=== PATIENT | female | born 1940 | race Caucasian/White ===

== ENCOUNTER 2024-11-03 13:18 | Outpatient (AMB) | payer MEDICARE, OTHER, SELFPAY ==
--- OUTSIDE RECORDS SUMMARY | 2024-11-03 13:20 | XMS_ITS | Data Portability ---
Author Organization [place] - [facility], Allergy Address [address] [place] [phone] Assessment No assessment recorded. Plan of Treatment Reminders Order Date Submit Date Provider Last Modified By Organization Details Last Modified Time Details Appointments None recorded. Lab None recorded. Referral gastroenter ologist referral - Appt 10/25 @ 4pm. Barium swallow in [facility], done in 2022. 2023 024 2 [facility], [address], [place], [address], 14:48:49 Procedures None recorded. Surgeries None recorded. Imaging None recorded. Medication Orders None recorded. Patient TargetsNo targets recorded. Patient InstructionsNo instructions recorded. Reason for Referral [facility] Referral for Pharyngeal dysphagia Appt 10/25 @ 4pm. Barium swallow in [facility], done in 2022. Referring Physician: Kamini Scherer, Otolaryngology, Encounter Date: 07/22/2024 Results Created Date Observation Date Name Description Value Unit Range Abnormal Flag Note LastModifiedBy Organization Detail LastModifiedTime 07/08/20 24 04/15/2023 imagi ng/di agnos tic resul t No observ ation record ed. [email or web address] Not Available 12:32:15 07/08/20 24 04/15/2023 imagi ng/di agnos tic resul t No observ ation record ed. [email or web address] Not Available 12:32:16 07/08/20 24 04/15/2023 imagi ng/di agnos tic resul t No observ ation record ed. [email or web address] Not Available 12:32:17 07/08/20 24 04/15/2023 imagi ng/di agnos tic resul t No observ ation record ed. [email or web address] Not Available 12:32:20 07/08/20 24 10/17/2022 imagi ng/di agnos tic resul t No observ ation record ed. [email or web address] Not Available 12:32:23 Result Notes None recorded. Problems Name Problem SNOMED Code Status Onset Date Resolution Date Notes Provider Name and Address Organization Details Recorded Time Pharyngea l dysphagia 91838560878 105 Active 2022 Dysphagia , pharyngea l phase; Note: Date Diagnosed : 12/23/2022 8:53 AM (R13.13) Not Available [facility] 02:57:44 Chronic pharyngit is 827103 Active 2022 Chronic sore throat; Note: Date Diagnosed : 12/23/2022 8:53 AM (J31.2) Not Available [facility] 02:57:41 Problem Notes None recorded. Procedures Surgical History Date Name Laterality Status Provider Name and Address Organization Details Recorded Time 07/22/20 Fiberoptic Laryngoscopy (Comprehensive) completed KAMINI SCHERER MD [address] [place] [address], [phone] [place] - [facility] 08/01/2024 10:49:17 Imaging Results Imaging Date Name Status [facility]Modified by [facility] Details LastModified Time 04/15/2023 imaging/diag nostic result completed Information not available 07/08/2024 12:32:15 04/15/2023 imaging/diag nostic result completed Information not available 07/08/2024 12:32:16 04/15/2023 imaging/diag nostic result completed Information not available 07/08/2024 12:32:17 04/15/2023 imaging/diag nostic result completed Information not available 07/08/2024 12:32:20 10/17/2022 imaging/diag nostic result completed Information not available 07/08/2024 12:32:23 Procedure Notes None recorded. Medical Equipment None Reported. Allergies No known drug allergies Medications Name Sig Start Date Stop Date Status Note LastModified by Organization Details LastModified Time atorvasta tin 80 mg tablet TAKE 1 TABLET BY MOUTH EVERY DAY active Not Available Not Available No t Available venlafaxi ne ER 75 mg capsule,e xtended release 24 hr TAKE 1 CAPSULE BY MOUTH EVERY DAY 07/22 completed Not Available Not Available Not Available fosfomyci n trometham ine 3 gram oral packet TAKE 1 SACHET DISSOLVE D IN LIQUID BY MOUTH ONCE 07/22 completed Not Available Not Available Not Available fluconazo le 150 mg tablet TAKE 1 TABLET BY MOUTH ONCE,REP EAT DOSE IF STILL HAVING SYMPTOMS IN 72 HOURS 07/22 completed Not Available Not Available Not Available metoprolo l succinate ER 50 mg tablet,ex tended release 24 hr TAKE 1 TABLET BY MOUTH EVERY DAY active Not Available Not Available No t Available hydrochlo rothiazid e 50 mg tablet TAKE 1 TABLET BY MOUTH EVERY DAY 07/22 completed Not Available Not Available Not Available senna 8.6 mg tablet TAKE 1 TABLET BY MOUTH DAILY AT BEDTIME FOR 10 DAYS 07/22 completed Not Available Not Available Not Available nifedipin e ER 30 mg tablet,ex tended release TAKE 1 TABLET BY MOUTH EVERY DAY 07/22 completed Not Available Not Available Not Available amlodipin e 5 mg tablet TAKE 1 TABLET BY MOUTH EVERY DAY active Not Available Not Available No t Available tramadol 50 mg tablet TAKE 1 TABLET BY MOUTH EVERY 12 HOURS NEEDED FOR PAIN active Not Available Not Available No t Available meloxicam 7.5 mg tablet TAKE 1 TABLET BY MOUTH EVERY DAY 07/22 completed Not Available Not Available Not Available levothyro xine 100 mcg tablet TAKE 1 TABLET DAILY SAME DOSE AND HALF TABLET ON THE WEEKEND FRIDAY active Not Available Not Available No t Available amlodipin e 10 mg tablet TAKE 1 TABLET BY MOUTH EVERY DAY 07/22 completed Not Available Not Available Not Available cephalexi n 500 mg capsule TAKE 1 CAPSULE BY MOUTH EVERY 12 HOURS FOR 7 DAYS 07/22 completed Not Available Not Available Not Available pantopraz ole 40 mg tablet,de layed release TAKE 1 TABLET BY MOUTH TWICE A DAY active Not Available Not Available No t Available hyoscyami ne sulfate 0.125 mg tablet TAKE 1 TABLET BY MOUTH 4 TIMES A DAY NEEDED FOR SPASM 07/22 completed Not Available Not Available Not Available lidocaine 5 % topical patch PLACE 1 PATCH TOPICALL Y DAILY, REMOVE PATCHES AFTER 12 HOURS*NO T COVERED active Not Available Not Available No t Available Aspirin Childrens 81 mg chewable tablet active Medicati on ID: [id number] rand Name: Aspirin Children s Send Method: E-Prescr ibed Sub s Allowed: subs OK Medic ationGen ericName : Aspirin Children s Not Available Not Available Not Available hydrochlo rothiazid e 25 mg tablet 07/22 completed Medicati on ID: [id number] B rand Name: hydrochl orothiaz nikki Send Method: E-Prescr ibed Sub s Allowed: subs OK Medic ationGen ericName : hydrochl orothiaz nikki Not Available Not Available Not Available zolpidem 5 mg tablet TAKE 1 TABLET BY MOUTH EVERYDAY AT BEDTIME *NOT COVERED/ USE DISC CARD) active Not Available Not Available No t Available gabapenti n 100 mg capsule TAKE 1 CAPSULE BY MOUTH TWICE A DAY FOR 5 DAYS active Not Available Not Available No t Available metoprolo l succinate ER 25 mg tablet,ex tended release 24 hr 07/22 completed Medicati on ID: [id number] rand Name: metoprol ol succinat e Send Method: E-Prescr ibed Sub s Allowed: subs OK Medic ationGen ericName : metoprol ol succinat e Not Available Not Available Not Available estradiol 0.01% (0.1 mg/gram) vaginal cream APPLY 1 GRAM VAGINALL Y DAILY AT BEDTIME FOR 14 DAYS active Not Available Not Available No t Available doxycycli ne hyclate 100 mg tablet TAKE 1 TABLET BY MOUTH TWICE A DAY WITH FOOD FOR 7 DAYS 07/22 completed Not Available Not Available Not Available irbesarta n 300 mg tablet TAKE 1 TABLET BY MOUTH EVERY DAY active Not Available Not Available No t Available oxycodone 5 mg tablet TAKE 1 TABLET BY MOUTH 3 TIMES A DAY FOR 30 DAYS NEEDED FOR PAIN 07/22 completed Not Available Not Available Not Available escitalop alfonso 20 mg tablet 07/22 completed Medicati on ID: [id number] B rand Name: escitalo pram oxalate Send Method: E-Prescr ibed Sub s Allowed: subs OK Medic ationGen ericName : escitalo pram oxalate Not Available Not Available Not Available Klor-Con M20 mEq tablet,ex tended release TAKE 1 TABLET BY MOUTH EVERY DAY active Not Available Not Available No t Available Klor-Con M10 mEq tablet,ex tended release TAKE 1 TABLET BY MOUTH EVERY DAY 07/22 completed Not Available Not Available Not Available pregabali n 75 mg capsule TAKE 1 CAPSULE BY MOUTH TWICE A DAY 07/22 completed Not Available Not Available Not Available hydrochlo rothiazid e 12.5 mg tablet TAKE 1 TABLET BY MOUTH EVERY DAY 07/22 completed Not Available Not Available Not Available Readi-Cat 2 2 % (w/v) oral suspensio n USE PRIOR TO CT active Not Available Not Available No t Available Vitals Date Recorded Body height Body mass index (BMI) Body weight Provider Name and Address Organization Details Last Updated DateTime 07/22/2024 154.94 cm 23.2 kg/m2 01448.86 g Mikki Wolff [place] [facility] 07/22/2024 11:41:43 Social History None recorded. Functional Status None recorded. Mental Status None recorded. Family History Nothing Reported. Medical History Condition Response Hypertension Y GERD/Reflux Y Gynecological HistoryNo gynecological history recorded. Obstetrics History GPAL:G 0 P 0 0 0 0 Past Encounters Encounter ID Performer Location Encounter Start Date Encounter Closed Date Diagnosis/Indication Diagnosis SNOMED-CT Code Diagnosis ICD10 Code [id number] KAMINI SCHERER MD [facility] on [address] [place] [phone] 07/22/2024 10:54:20 07/22/2024 16:38:55 Pharyngeal dysphagia 4593087972 9105 R13.13 Health Concerns Section Related Observation LastModified by Organization Detai ls LastModified Time None Recorded Concern Status LastModified by Organization Details LastModified Time None Recorded Advance Directives Directive None Recorded Payers Encounter Date Sequence Insurance Name Policy Number Policy Gonzalez Covered Member ID Gonzalez Member ID Guarantor Name 07/22/2024 1 MEDICARE B-[place]: [facility] [employer] Danisha Camiol [id number] Danisha Camilo 07/22/2024 2 [facility] [id number] Danisha Camilo [id number] Danisha Camilo Notes Date Note Type Note Provider Name and Address Organization Details Recorded Time 07/22/2024 text/html Patient presents today for reassessment of her throat. For several months she feels like a door closes in her throat and then clears. She is also noted that chewing is very uncomfortable at the level of her gingiva. Her dentist did recommend a mouthguard as she does clench but she does not have this. She does have a history of trigeminal neuralgia. Since Her previous modified barium swallow showed no aspiration, but she did have some intermittent spasm of the cricopharyngeus. She had a CT scan in October showing a asymmetric calcific hypo density in the posterior aspect of the vocal cord. KAMINI SCHERER MD [address] [place] [address], [phone], [facility] - [facility] 08/01/2024 10:51:20 OBGyn Episode No OBEpisode recorded.
--- NOTE | 2024-11-03 14:07 | A.SPINEOV_ITS ---
Vital Signs 11/03/24 14:17 Height 5 ft 1 in Weight 126 lb BMI 23.8 Intake Visit Reasons: LBP/ R sided pain Intake Note: Ms. Camilo is here today c/o low back pain. Md Ophthalmologist Required: No Allergies gabapentin Allergy (Mild, Verified 11/03/24 14:18) Swelling Physical Exam Vital Signs: BMI result Body Mass Index 23.8 Assessment & Plan Assessment & Plan (1) Scoliosis of lumbar region due to degenerative disease of spine in adult: Code(s): M41.56 - Other secondary scoliosis, lumbar region Category: Medical Plan: Dear colleague On 11/03/2024 I saw for 2nd opinion Danisha Camilo with a chief complaint of right groin pain. HPI: This 84-year-old female has a longstanding history of pain radiating from her back into her groin. The groin pain is worse than the back pain. Sometimes the pain goes down the front of her thigh. Oxycodone alleviates his symptoms but she is no longer able to get those medications. She takes tramadol twice a day. The pain is so bad that it makes her cry. She has had multiple injections the pain he spinal support. She had an surgical consult at [facility]. The working diagnosis was sacroiliitis and she was prescribed an SI joint belt, which was too cumbersome to wear. PMH: Hypertension, cholecystectomy, PE, heart attack, cardiac stent Medications: Aspirin amlodipine, atorvastatin, hydrochlorothiazide, metoprolol, pantoprazole, tramadol Allergies: Gabapentin Social history: Physical Exam: On inspection there was a lumbar degenerative scoliosis with the apex towards the right side. SI joint provocative test produces pain of her right hip area. Straight leg raise is negative. Motor and sensory exam are intact. No pathological reflexes. The initial start of walking is painful. Radiological Studies: MRI done at [facility] shows multilevel degenerative spinal stenosis with nerve root compression of L2, L3, L4 and L5 on the right side. A standing x-ray obtained today with dynamic views shows a lumbar degenerative scoliosis with the apex at L1-2 and L2-3. No instability. Impression/Plan: This patient is most likely suffering from a radicular pain. Differential diagnosis is right sacroiliitis. I am going to request the the medical records from [facility] to see what type of injections were done. I will follow-up with the patient after review of the records. My initial thought is to request an L2 or L3 nerve block. Thank you for allowing me to participate in your patients care. total time spent was 50 minutes in counseling ,coordination of plan, personal review of imaging, surgical decision making and subsequent plan Jay Velasco MD, PhD Spine Fellowship Trained Neurosurgeon Director, [facility] (2) Lumbar radiculopathy, chronic: Code(s): M54.16 - Radiculopathy, lumbar region Category: Medical Plan: f Orders: Orders XR lumbar spine 4V min Today M41.56 - Other secondary scoliosis, lumbar region Coding Level of Care Code New Pt Level 4 (43946) Diagnoses Scoliosis of lumbar region due to degenerative disease of spine in adult M41.56 Lumbar radiculopathy, chronic M54.16
[2024-11-03 14:17] VITALS: BMI 23.8
== END 2024-11-03 15:37 | disposition home or self-care (01) ==
PROVIDERS: PCP Internal Medicine; Visit Provider Neurological Surgery
DX: M41.56 Other secondary scoliosis, lumbar region (principal); M54.16 Radiculopathy, lumbar region
CPT/HCPCS: 99204

== ENCOUNTER 2024-11-03 13:18 | Outpatient (REF) | payer MEDICARE, OTHER, SELFPAY ==
--- NOTE | ~2024-11-03 | XR_ITS ---
EXAMINATION: XR LUMBAR SPINE CLINICAL INFORMATION: Other secondary scoliosis, lumbar region M41.56. COMPARISON: None TECHNIQUE: AP/lateral/flexion/extension views of the lumbar spine. 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 FINDINGS: There is diffuse osteopenia. No acute fracture, compression deformity, or suspicious focal bone lesion. There is a moderate right convex lumbar scoliosis, apex at L3. There is an exaggerated lumbar lordosis. Multilevel moderate to severe disc degeneration present, with disc vacuum phenomenon spanning L2-L5. Multilevel degenerative facet changes bilaterally, most significant spanning L3-S1. Neutral lateral view demonstrates 2 mm degenerative retrolisthesis L3 on L4, and 3 mm degenerative anterolisthesis of L4 on L5. There is no change on flexion and extension views to suggest instability. Soft tissues demonstrate extensive vascular calcifications and cholecystectomy clips. XR/XR lumbar spine 4V min IMPRESSION: 1. Osteopenia with moderate right convex scoliosis and exaggerated lordosis. 2. Extensive lumbar spondylosis as discussed. 3. There is no evidence of instability on flexion-extension views. Electronically signed by: Kendall Adkins MD 12/09/2024 03:27 PM EST
--- OUTSIDE RECORDS SUMMARY | 2024-11-03 15:37 | XMS_ITS | Continuity of Care Document ---
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 Schroeder in 2016. She last saw him in March 2020 and was having painful hardware. They discussed hardware removal surgery at that time she elected to hold off on surgery. 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 She described chronic low back pain. Her back is currently much more an issue than her right foot. She is here today to discuss future hardware removal. Past family, medical, social history and review of systems has been reviewed, updated and is located in the patient? s chart. PHYSICAL EXAM: General: healthy appearing, in no acute distress Psych: alert and oriented x3, normal mood Skin: intact without ulceration or lesion, normal turgor Lungs: respirations unlabored Cardiac: heart rate regular, normal peripheral pulses Musculoskeletal: On standing exam, she has normal alignment in her hallux was well aligned. She has a well-healed dorsal incision. There is no swelling and no infectious change. Her hardware is prominent and tender over the dorsal aspect of the hallux. She has decreased sensation over the dorsal aspect of her foot related to peripheral neuropathy. There is no TMT tenderness or instability. There is no lesser MTP tenderness or deformity. She is otherwise distally neurovascularly intact. She has palpable pedal pulses. X-RAYS: Three standing views of the right foot were ordered, obtained and reviewed by me today at [facility], demonstrating healed right first MTP fusion with intact dorsal plate screw construct and medial lag screw. IMPRESSION: Right great toe painful retained hardware PLAN: I believe she is symptomatic from the standpoint of her retained hardware, which is prominent. I have offered surgery consisting of right hallux removal of hardware. She will think about this and call the office when she is ready to proceed. A hold booking form was filled out today. 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 All questions were answered. She understands and agrees with this plan. She will be able to weight-bear in a postop shoe following surgery. Risks include, but are not limited to, wound healing problems, deep infection, persistent pain, stiffness, nerve injury/neuritis, need for further surgery. The expected postoperative course was outlined in detail. The patient understands the nature and magnitude of this surgery. All questions were answered. [email or web address] Not available 09/16/2024 09:37:26 Plan of Treatment Reminders Order Date Submit Date Provider Last Modified By Organization Details Last Modified Time Details Appointments None recorded. Lab None recorded. Referral None recorded. Procedures None recorded. Surgeries orthopaedic surgery (SURG) 2023 024 [email or web address] Not available 4 10:47:13 Imaging XR, foot, 3 or more view - RM 107-- NEW 3V FOOT WB 2023 024 [facility], [address], [facility] [address], [place], [address], 4 19:41:42 Medication Orders None recorded. Patient TargetsNo targets recorded. Patient InstructionsNo instructions recorded. Reason for Referral None Reported. Results Created Date Observation Date Name Description Value Unit Range Abnormal Flag Note LastModifiedBy Organization Detail LastModifiedTime 09/16/20 24 09/16/2024 XR, foot, 3 or more view [email or web address]:/ [email or web address] ?Encry pted=s [place] YD8dLq bEUv6g %2BXZw aYqtaq 0bqfl% 2Fg9IQ a4ajBk vP9nXo QUaueC m3YtLR FvZlgJ JJ8mAn HZtai3 [id number] AC0Kqa H6CWKO gKiQtr MwF INTERFACE [facility] [address], [place], [address], 09/16/2024 09:07:26 09/16/20 24 09/16/2024 XR, foot, 3 or more view [email or web address]:/ [email or web address] ?Encry pted=s hAaTro YD8dLq bEUv6g %2BXZw aYqtaq 0bqfl% 2Fg9IQ a4ajBk vP9nXo QUaueC m3YtLR FvZlgJ JJ8mAn HZtai3 [id number] AC0Kqa H6CWKO gKiQtr Mw INTERFACE [facility] [address], [place], [address], 09/16/2024 09:07:28 Result Notes None recorded. Problems Name Problem SNOMED Code Status Onset Date Resolution Date Notes Provider Name and Address Organization Details Recorded Time No complaints 692041931 Active Status : 'A'; Not Available [facility] 4 09:20:03 Problem Notes None recorded. Medical Equipment None Reported. Allergies Allergen ID Allergen Name Allergen Category Reaction Reaction Severity Criticality Documentation Date Start Date Code Code System Note Provider Name and Address Organization Details Recorded Time 06719 Substance with sulfonami de structure and antibacte rial mechanism of action (substanc e) medicatio n Not available Not available Not available 01/19/20242010 46759 8003 SNOMED Aller gyRea ction : 'STOM [facility] PROBL EMS'; Not Available [facility] 4 14:47:39 Medications Name Sig Start Date Stop Date Status Note LastModified by Organization Details LastModified Time atorvastatin 80 mg tablet TAKE 1 TABLET BY MOUTH EVERY DAY active Not Available Not Available No t Available venlafaxine ER 75 mg capsule,exte nded release 24 hr TAKE 1 CAPSULE BY MOUTH EVERY DAY active Not Available Not Available No t Available fosfomycin tromethamine 3 gram oral packet TAKE 1 SACHET DISSOLVED IN LIQUID BY MOUTH ONCE active Not Available Not Available No t Available fluconazole 150 mg tablet TAKE 1 TABLET BY MOUTH ONCE,REPEAT DOSE IF STILL HAVING SYMPTOMS IN 72 HOURS active Not Available Not Available No t Available metoprolol succinate ER 50 mg tablet,exten ded release 24 hr TAKE 1 TABLET BY MOUTH EVERY DAY active Not Available Not Available No t Available hydrochlorot hiazide 50 mg tablet TAKE 1 TABLET BY MOUTH EVERY DAY active Not Available Not Available No t Available hydrocodone 5 mg-acetamino phen 325 mg tablet TAKE 1 TABLET BY MOUTH ONCE DAILY NEEDED FOR SEVERE PAIN active Not Available Not Available Not Available senna 8.6 mg tablet TAKE 1 TABLET BY MOUTH DAILY AT BEDTIME FOR 10 DAYS active Not Available Not Available Not Available nifedipine ER 30 mg tablet,exten ded release TAKE 1 TABLET BY MOUTH EVERY DAY active Not Available Not Available No t Available amlodipine 5 mg tablet TAKE 1 TABLET BY MOUTH EVERY DAY active Not Available Not Available No t Available tramadol 50 mg tablet TAKE 1 TABLET BY MOUTH EVERY 12 HOURS, NEEDED FOR PAIN active Not Available Not Available No t Available meloxicam 7.5 mg tablet TAKE 1 TABLET BY MOUTH EVERY DAY active Not Available Not Available No t Available levothyroxin e 100 mcg tablet TAKE 1 TABLET DAILY SAME DOSE AND HALF TABLET ON THE WEEKEND FRIDAY active Not Available Not Available No t Available amlodipine 10 mg tablet TAKE 1 TABLET BY MOUTH EVERY DAY active Not Available Not Available No t Available cephalexin 500 mg capsule TAKE 1 CAPSULE BY MOUTH EVERY 12 HOURS FOR 7 DAYS active Not Available Not Available N ot Available pantoprazole 40 mg tablet,delay ed release TAKE 1 TABLET BY MOUTH TWICE A DAY active Not Available Not Available No t Available hyoscyamine sulfate 0.125 mg tablet TAKE 1 TABLET BY MOUTH 4 TIMES A DAY NEEDED FOR SPASM active Not Available Not Available No t Available pseudoephedr ine-guaifene sin ER 80-700 mg tablet,exten ded release 1-2 Q4-6 HRS PRN PAIN. DO NOT DRIVE ON THIS MEDICATION MUST LAST 3 DAYS 2015 active Statu s: 'Curr ent'; Not Available Not Available Not Available lidocaine 5 % topical patch PLACE 1 PATCH TOPICALLY DAILY, REMOVE PATCHES AFTER 12 HOURS*NOT COVERED active Not Available Not Available No t Available hydrochlorot hiazide 25 mg tablet TAKE 1 TABLET BY MOUTH EVERY DAY active Not Available Not Available No t Available zolpidem 5 mg tablet TAKE 1 TABLET BY MOUTH EVERYDAY AT BEDTIME active Not Available Not Available No t Available gabapentin 100 mg capsule TAKE 1 CAPSULE BY MOUTH TWICE A DAY FOR 5 DAYS active Not Available Not Available No t Available estradiol 0.01% (0.1 mg/gram) vaginal cream APPLY 1 GRAM VAGINALLY DAILY AT BEDTIME FOR 14 DAYS active Not Available Not Available No t Available doxycycline hyclate 100 mg tablet TAKE 1 TABLET BY MOUTH TWICE A DAY WITH FOOD FOR 7 DAYS active Not Available Not Available No t Available irbesartan 300 mg tablet TAKE 1 TABLET BY MOUTH EVERY DAY active Not Available Not Available No t Available oxycodone 5 mg tablet TAKE 1 TABLET BY MOUTH 3 TIMES A DAY FOR 30 DAYS NEEDED FOR PAIN active Not Available Not Available No t Available Klor-Con M20 mEq tablet,exten ded release TAKE 1 TABLET BY MOUTH EVERY DAY active Not Available Not Available No t Available Klor-Con M10 mEq tablet,exten ded release TAKE 1 TABLET BY MOUTH EVERY DAY active Not Available Not Available No t Available pregabalin 75 mg capsule TAKE 1 CAPSULE BY MOUTH TWICE A DAY active Not Available Not Available No t Available Levoxyl Levoxyl 112MCG Tablet as directed 2007 active Statu s: 'Curr ent'; Not Available Not Available Not Available potassium Potassium 75MG Tablet 2022 active Statu s: 'Curr ent'; Not Available Not Available Not Available hydrochlorot hiazide 12.5 mg tablet TAKE 1 TABLET BY MOUTH EVERY DAY active Not Available Not Available No t Available Readi-Cat 2 2 % (w/v) oral suspension USE PRIOR TO CT active Not Available Not Available No t Available Vitals Date Recorded Body height Body mass index (BMI) Body weight Provider Name and Address Organization Details Last Updated DateTime 09/16/2024 154.94 cm 23.4 kg/m2 61297.45 g KERRI Marina [place] - [facility] 09/16/2024 09:09:48 Social History None recorded. Functional Status None recorded. Mental Status None recorded. Family History Nothing Reported. Medical History No medical history recorded. Gynecological HistoryNo gynecological history recorded. Obstetrics History GPAL:G 0 P 0 0 0 0 Past Encounters Encounter ID Performer Location Encounter Start Date Encounter Closed Date Diagnosis/Indication Diagnosis SNOMED-CT Code Diagnosis ICD10 Code [id number] MD [facility]y [facility] [address] [place] [address] 09/16/2024 08:24:02 10/07/2024 19:41:42 Pain in right foot 7183092728 38085 M79.671 Pain 37705837 T84.84X A Health Concerns Section Related Observation LastModified by Organization Detai ls LastModified Time None Recorded Concern Status LastModified by Organization Details LastModified Time None Recorded Payers Encounter Date Sequence Insurance Name Policy Number Policy Gonzalez Covered Member ID Gonzalez Member ID Guarantor Name 09/16/2024 2 [facility] INDEMN[facility] PLAN (PPO) [id number] Danisha Camilo [id number] Danisha Camilo 09/16/2024 1 MEDICARE B-[place]: [facility] [employer] Danisha Camilo [id number] 1 Danisha Camilo OBGyn Episode No OBEpisode recorded.
== END 2024-11-03 13:19 | disposition home or self-care (01) ==
LOC: HO.HOSX 13:18
PROVIDERS: PCP Internal Medicine; Visit Provider Neurological Surgery
DX: M54.16 Radiculopathy, lumbar region (principal); M41.56 Other secondary scoliosis, lumbar region
CPT/HCPCS: 72110; 99202

== ENCOUNTER 2025-01-05 11:11 | Outpatient (AMB) | payer MEDICARE, OTHER, SELFPAY ==
--- NOTE | 2025-01-05 11:27 | HO.SPINEOV ---
Intake Visit Reasons: f/up to review Intake Note: Ms. Camilo is here today for a F/u. [employer] Specialist Required: No Allergies gabapentin Allergy (Mild, Verified 01/05/25 11:31) Swelling Assessment & Plan Assessment & Plan (1) Lumbar radiculopathy, chronic: Code(s): M54.16 - Radiculopathy, lumbar region Category: Medical Plan Dear colleague, On 01/05/2025 I saw for follow-up Danisha Camilo. She suffering from a right-sided pain that starts in the back and then radiates to her right groin sometimes down her thigh. She had multiple injections done at [facility] in the lumbar spine and SI joints bilaterally. Clinically, it sounds like a radiculopathy and not an SI joint instability. She never had a right L2 diagnostic block for which I am going to refer to pain you [facility]. The patient returned to my clinic when this block is done to discuss the results. I spent 20 minutes in his consult for history review of imaging and discussing plan of care. Jay Velasco MD, PhD Spine Fellowship Trained Neurosurgeon Director, [facility] Orders: Referrals Pain Management Referral M54.16 - Radiculopathy, lumbar region Coding Level of Care Code Est Pt Level 3 (75540) Diagnoses Lumbar radiculopathy, chronic M54.16
--- OUTSIDE RECORDS SUMMARY | 2025-01-05 11:56 | XMS_ITS | Data Portability ---
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 Schroeder in 2015. She last saw him in March 2020 [...] obtained and reviewed by me today at [facility], demonstrating healed right first MTP fusion with [...] recorded. Surgeries orthopaedic surgery (SURG) 2023 024 Not available 4 10:47:13 Imaging XR, foot, 3 or more view - 107-- NEW 3V FOOT WB 2023 024 [facility], [address], [facility] [address], [place], [address], 4 19:41:42 Medication Orders None recorded. Patient [...] a4ajBk vP9nXo QUaueC m3YtLR FvZlgJ JJ8mAn HZtai3 [id number] AC0Kqa H6CWKO gKiQtr MwF INTERFACE [facility] [address], [place], [address], 09/16/2024 09:07:26 09/16/2009/16/2024 XR, foot, 3 or more view http:/ [email or web address] ?Encry pted=s hAaTro YD8dLq bEUv6g %2BXZw aYqtaq 0bqfl% 2Fg9IQ a4ajBk vP9nXo QUaueC m3YtLR FvZlgJ JJ8mAn HZtai3 [id number] AC0Kqa H6CWKO gKiQtr Mw INTERFACE [facility] [address] [employer] [address], [address], 09/16/2024 09:07:28 Result Notes None recorded. Problems Name Problem SNOMED Code Status Onset Date Resolution Date Notes Provider Name and Address Organization Details Recorded Time No complaints [id number] Active Status : 'A'; Not Available [facility] 09:20:03 Problem Notes None recorded. Procedures Surgical History None recorded. Imaging Results Imaging Date Name Status LastModified by Organiz ation Details LastModified Time 09/16/2024 XR, foot, 3 or more view completed INTERFACE [employer] [facility] [address] [place] [address], [place], [address], 09/16/2024 09:07:26 09/16/2024 XR, foot, 3 or more view completed INTERFACE [facility] [address], [place], [address], 09/16/2024 09:07:28 Procedure Notes None recorded. Medical Equipment None Reported. Allergies Allergen ID Allergen Name Allergen Category Reaction Reaction Severity Criticality Documentation Date Start Date Code Code System Note Provider Name and Address Organization Details Recorded Time 42617 Substance with sulfonami de structure and antibacte rial mechanism of action (substanc e) medicatio n Not available Not available Not available 01/19/20242010 25848 8003 SNOMED Aller gyRea ction : 'STOM [facility] PROBL EMS'; Not Available [facility] 4 14:47:39 Medications Name Sig Start [...] Updated DateTime 09/16/2024 154.94 cm 23.4 kg/m2 09660.45 g KERRI Marina [place] - [facility] 09/16/2024 09:09:48 Social History None recorded. Functional Status None recorded. Mental Status None recorded. Family History Nothing Reported. Medical History No medical history recorded. Gynecological HistoryNo gynecological history recorded. Obstetrics History GPAL:G 0 P 0 0 0 0 Past Encounters Encounter ID Performer Location Encounter Start Date Encounter Closed Date Diagnosis/Indication Diagnosis SNOMED-CT Code Diagnosis ICD10 Code Diagnosis Note [id number] MD Bry [facility] [address] [place] [address] 09/16/2024 08:24:02 10/07/2024 19:41:42 Pain in right foot [id number] 56632 M79.671 Pain 39294878 T84.84X A Health Concerns Section Related Observation LastModified by Organization Detai ls LastModified Time None Recorded Concern Status LastModified by Organization Details LastModified Time None Recorded Advance Directives Directive None Recorded Payers Encounter Date Sequence Insurance Name Policy Number Policy Gonzalez Covered Member ID Gonzalez Member ID Guarantor Name 09/16/2024 2 [facility] INDEMNITY PLAN (PPO) [id number] Danisha Camilo [id number] Danisha Camilo 09/16/2024 1 [place] [employer] Danisha Camilo [id number] 1 Danisha Camilo OBGyn Episode No OBEpisode recorded.
--- OUTSIDE RECORDS SUMMARY | 2025-01-05 11:56 | XMS_ITS | Continuity of Care Document ---
Author Organization [facility] ter Address [address] [place] [id number]- Support Name Relationship Address Phone WENDI ADLER Personal Relationship Unknown Unava ilable CADRAN, YULI Personal Relationship Unknown Unavai lable CADRAN, YULI Personal Relationship Unknown Unavai lable CADRAN, JAVI child Unknown Unavailable CADRAN, YULI Personal Relationship Unknown Unavai lable CADRAN, MICHELE Personal Relationship Unknown Unava ilable CADRAN, YULI Personal Relationship Unknown Unavai lable CADRAN, DALEH Personal Relationship Unknown Unava ilable CADRAN, MICHELE R Personal Relationship Unknown Samantha vailable CARDRAN, YULI spouse Unknown Unavailable CARDRAN, JAVI child Unknown Unavailable CADRAN, YULI Personal Relationship Unknown Unavai lable CADRAN, YULI Personal Relationship Unknown Unavai lable CADRAN, MICHELE R Personal Relationship Unknown Samantha vailable CADRAN, YULI Personal Relationship Unknown Unavai lable CADRAN, YULI Personal Relationship Unknown Unavai lable CADRAN, YULI Personal Relationship Unknown Unavai lable CADRAN, YULI spouse Unknown Unavailable CADRAN, YULI Personal Relationship Unknown Unavai lable CADRAN, MICHELE R Personal Relationship Unknown Samantha vailable CADRAN, YULI Personal Relationship Unknown Unavai lable CADRAN, YULI Personal Relationship Unknown Unavai lable Care Team Providers Care Field Control Inspector Name Role Phone Felton RUIZ, Dulce Maria Primary Care Physici an Encounter [facility] Date(s): 12/07/24 - 12/07/[address] [address]- Discharge Disposition: A-D/C Home Attending Physician: Isabella Sanchez MD Admitting Physician: Isabella Sanchez MD Referring Physician: Isabella Sanchez MD Encounter Type: Disch Daystay Allergies, Adverse Reactions, Alerts Substance Criticality Severity Reaction Reaction Severity Status nitroglycerin 1 Unable to assess criticality Persistent Moderate Weakness present Active gabapentin Active sulfa drugs Active 1weakness Immunizations Given and Recorded Vaccine Date Status Refusal Reason influenza virus vaccine, inactivated 08/06/24 Micheal rded influenza virus vaccine, inactivated 08/06/23 Micheal rded influenza virus vaccine, inactivated 08/19/22 Micheal rded influenza virus vaccine, inactivated 08/29/21 Micheal rded influenza virus vaccine, inactivated 08/17/19 Micheal rded influenza virus vaccine, inactivated 07/30/18 Micheal rded influenza virus vaccine, inactivated 08/10/10 Micheal rded SARS-CoV-2(COVID-19)mRNA-LNP vac([id number]) 08/06/24 Recorded SARS-CoV-2(COVID-19)mRNA-LNP vac([id number]) 08/16/23 Recorded zoster vaccine, inactivated 07/06/24 Recorded zoster vaccine, inactivated 09/16/22 Recorded zoster vaccine, inactivated 09/27/16 Recorded [id number] 12y+ bivalent booster vax 08/19/22 Recorded SARS-CoV-2 (COVID-19) mRNA BNT-162b2 vac 09/14/21 Recorded SARS-CoV-2 (COVID-19) mRNA BNT-162b2 vac 01/25/21 Recorded SARS-CoV-2 (COVID-19) mRNA BNT-162b2 vac 12/28/20 Recorded Influenza Virus Vaccine (oldterm) 08/10/17 Recorde d Influenza Virus Vaccine (oldterm) 09/06/16 Recorde d Zoster Vaccine Live 03/07/16 Recorded pneumococcal 13-valent vaccine 04/24/15 Recorded pneumococcal 23-valent vaccine 08/17/11 Recorded Medications amLODIPine 5 mg oral tablet 1 tablet, By Mouth, Daily, # 90 tablet, 1 Refills, Maintenance, 08/03/24 2:40:00 PM EDT, [id number], 155, cm, 07/13/24 14:51:00 EDT, Height, 55, kg, 05/12/24 3:01:00 EDT, Dry Weight Start Date: 08/03/24 Status: Ordered Quantity: 90.0 Unit: tablet Repeat number: 1 aspirin 81 mg oral delayed release tablet 81 mg, 1, tablet, By Mouth, Daily, # 30 tablet, Refills 0, Maintenance, 01/11/20 10:29:00 AM EST Start Date: 01/11/20 Status: Ordered Quantity: 30.0 Unit: tablet Repeat number: 1 atorvastatin 80 mg oral tablet 1 tablet, By Mouth, Daily, # 90 tablet, 1 Refills, Maintenance, 08/03/24 2:40:00 PM EDT, [id number], 155, cm, 07/13/24 14:51:00 EDT, Height, 55, kg, 05/12/24 3:01:00 EDT, Dry Weight Start Date: 08/03/24 Status: Ordered Quantity: 90.0 Unit: tablet Repeat number: 1 calcium-vitamin D 600 mg-400 intl units oral tablet 1 tablet, By Mouth, 2 times a day, # 180 tablet, 1 Refills, Maintenance, 11/18/24 10:13:00 AM EST, [facility], 90, TAKE 1 TABLET BY MOUTH TWICE A DAY, 156, cm, 11/08/24 6:34:00 EST, Height, 57, kg, 11/08/24 6:34:00 EST, Dry Weight Start Date: 11/18/24 Status: Ordered Quantity: 180.0 Unit: tablet Repeat number: 1 Centrum By Mouth, Daily, 0 Refills, Maintenance, 01/11/20 10:30:00 AM EST Start Date: 01/11/20 Status: Ordered Repeat number: 1 estradiol 0.1 mg/g vaginal cream See Instructions, APPLY 1 GRAM VAGINALLY DAILY AT BEDTIME FOR 14 DAYS, # 42.5 Gm, 0 Refills, Maintenance, 08/03/24 11:29:00 AM EDT, [id number], 155, cm, 07/13/24 14:51:00 EDT, Height, 55, kg, 05/12/24 3:01:00 EDT, Dry Weight Start Date: 08/03/24 Status: Ordered Quantity: 42.5 Unit: g Repeat number: 1 fosfomycin 3 g oral granule for reconstitution 1 each = 3 Gm, By Mouth, Once, # 1 pack/packet, 0 Refills, Soft Stop, 07/01/24 1:58:00 PM EDT, Granule, [facility]/pharmacy #[id number], Partial fill upon patient request if the prescription is for a schedule II opioid drug., 155, cm, 05/29/24 10:33:00 EDT, Height, 55, kg, 05/12/24 3:01:00 EDT, Dry Weight Start Date: 07/01/24 Status: Ordered Quantity: 1.0 Unit: pack/packet Repeat number: 1 irbesartan 300 mg oral tablet 1 tablet, By Mouth, Daily, # 90 tablet, 1 Refills, Maintenance, 10/07/24 10:07:00 AM EST, [facility]/pharmacy #[id number], 155, cm, 10/07/24 9:57:00 EST, Height, 55, kg, 09/14/24 5:53:00 EDT, Dry Weight Start Date: 10/07/24 Status: Ordered Quantity: 90.0 Unit: tablet Repeat number: 2 Indication: Essential (primary) hypertension Klor-Con M20 20 mEq oral tablet, extended release 1 tablet, By Mouth, Daily, # 90 tablet, 2 Refills, Maintenance, 11/18/24 10:13:00 AM EST, [facility], 156, cm, 11/08/24 6:34:00 EST, Height, 57, kg, 11/08/24 6:34:00 EST, Dry Weight Start Date: 11/18/24 Status: Ordered Quantity: 90.0 Unit: tablet Repeat number: 1 levothyroxine 0.1 mg oral tablet See Instructions, TAKE 1 TABLET DAILY SAME DOSE AND HALF TABLET ON THE WEEKEND FRIDAY, # 90 tablet,1 Refills, Maintenance, 07/21/24 10:58:00 AM EDT, [facility], 155, cm, 07/13/24 14:51:00 EDT, Height, 55, kg, 05/12/24 3:01:00 EDT, Dry Weight Start Date: 07/21/24 Status: Ordered Quantity: 90.0 Unit: tablet Repeat number: 1 lidocaine 5% topical film 1 patch, Topically, Daily, remove patches after 12 hours, # 30 patch, 1 Refills, Maintenance, 10/12/24 11:35:00 AM EST, Film, [id number], Partial fill upon patient request if the prescriptionis for a schedule II opioid drug., 1 patch Topically Daily,Instr:remove patches after 12 hours, 155, cm, 10/07/24 10:15:00 EST, Height, 55, kg, 09/14/24 5:53:00 EDT, Dry Weight Start Date: 10/12/24 Status: Ordered Quantity: 30.0 Unit: patch Repeat number: 2 meloxicam 7.5 mg oral tablet 1 tablet, By Mouth, Daily, # 30 tablet, 0 Refills, Maintenance, 07/06/24 7:34:00 PM EDT, [id number], 155, cm, 05/29/24 10:33:00 EDT, Height, 55, kg, 05/12/24 3:01:00 EDT, Dry Weight Start Date: 07/06/24 Status: Ordered Quantity: 30.0 Unit: tablet Repeat number: 1 Metoprolol Succinate ER 50 mg oral tablet, extended release 1, tablet, By Mouth, Daily, # 90 tablet, Refills 1, Tot. Refills 1, Maintenance, 10/07/24 10:06:00 AM EST, Route to Pharmacy Electronically, [facility]/pharmacy #[id number], 155, cm, 10/07/24 9:57:00 EST, Height,55, kg, 09/14/24 5:53:00 EDT, Dry Weight Start Date: 10/07/24 Status: Ordered Quantity: 90.0 Unit: tablet Repeat number: 2 Indication: Essential (primary) hypertension pantoprazole 40 mg oral delayed release tablet 1 tablet, By Mouth, 2 times a day, # 180 tablet, 1 Refills, Maintenance, 10/07/24 10:07:00 AM EST, 155, cm, 10/07/24 9:57:00 EST, Height, 55, kg, 09/14/24 5:53:00 EDT, Dry Weight Start Date: 10/07/24 Status: Ordered Quantity: 180.0 Unit: tablet Repeat number: 2 traMADol 50 mg oral tablet 1 tablet, By Mouth, Every 12 hours, PRN NEEDED FOR PAIN, # 40 tablet, 2 Refills, Maintenance, 11/18/24 10:08:00 AM EST, [facility]/pharmacy #[id number], 156, cm, 11/08/24 6:34:00 EST, Height, 57, kg, 11/08/24 6:34:00 EST, Dry Weight Start Date: 11/18/24 Status: Ordered Quantity: 40.0 Unit: tablet Repeat number: 3 venlafaxine 150 mg oral capsule, extended release 1 capsule, By Mouth, Daily, # 90 capsule, 0 Refills, Maintenance, 12/07/24 11:45:00 PM EST, [facility] [id number], 154.9, cm, 12/07/24 11:33:00 EST, Height, 54.4, kg, 12/07/24 11:33:00 EST, Dry Weight Start Date: 12/07/24 Status: Ordered Quantity: 90.0 Unit: capsule Repeat number: 1 zolpidem 5 mg oral tablet 1 tablet = 5 mg, By Mouth, Daily at bedtime, # 30 tablet, 0 Refills, Maintenance, 12/07/24 2:54:00 PM EST, [facility]/pharmacy #[id number], 154.9, cm, 12/07/24 11:33:00 EST, Height, 54.4, kg, 12/07/24 11:33:00 EST, Dry Weight Start Date: 12/07/24 Status: Ordered Quantity: 30.0 Unit: tablet Repeat number: 1 Problem List Condition Confirmation Course Effective Dates Status H ealth Status Informant Anxiety disorder Confirmed Active Atrophic vaginitis Confirmed Active Atrophic pancreas Confirmed Active Left breast mass Confirmed Active Carotid atherosclerosis Confirmed Active Cervical radiculopathy Confirmed Active Chest pain Confirmed Active Chronic abdominal pain Confirmed Active Chronic back pain Confirmed Active Chronic vulvitis Confirmed Active Ureteric dilatation, right Confirmed Active Dysphagia Confirmed Active Lower extremity edema Confirmed Active Essential hypertension Confirmed Active Gastroesophageal reflux disease Confirmed Active History of TIA (transient ischemic attack) Confirmed Active Hyperglycemia Confirmed Active Hyperhidrosis Confirmed Active Hyperlipidemia Confirmed Active Hypokalemia Confirmed Active Hypothyroidism Confirmed Active Insomnia Confirmed Active Skin tag of vulva Confirmed Active Muscle pain Confirmed Active Neuropathic pain, arm Confirmed Active Lung nodule Confirmed Active Osteopenia Confirmed Active Major depression, recurrent Confirmed Active Major depression, recurrent, chronic Confirmed Active Sacral insufficiency fracture Confirmed Active Trigeminal neuralgia Confirmed Active 3-vessel CAD Confirmed Active Urinary tract infection Confirmed Active Vital Signs Most recent to oldest [Reference Range]: 1 2 3 Height 154.9 cm (12/07/24 11:16 AM) Oxygen Saturation [94-100 %] 97 % (12/07/24 1:00 PM) 98 % (12/07/24 12:55 PM) 99 % (12/07/24 12:45 PM) Pulse Rate [55-90 bpm] 65 bpm (12/07/24 11:16 AM) Blood Pressure [90-138/55-84 mm Hg] 161/81mm Hg *H* (12/07/24 1:00 PM) 169/79mm Hg *H* (12/07/24 12:55 PM) 161/71mm Hg *H* (12/07/24 12:45 PM) Respiratory Rate [16-30 br/min] 20 br/min (12/07/24 1:00 PM) 14 br/min *L* (12/07/24 12:55 PM) 21 br/min (12/07/24 12:45 PM) Temperature [96.8-100.4 DegF] 97.2 DegF (12/07/24 11:16 AM) Mode of Delivery (Oxygen) Room air (12/07/24 1:00 PM) Room air (12/07/24 12:55 PM) Room air (12/07/24 12:45 PM) Blood pressure sites Arm, left (12/07/24 1:00 PM) Arm, left (12/07/24 12:55 PM) Arm, left (12/07/24 12:45 PM) Temperature Route Temporal (12/07/24 11:16 AM) Dry Weight 54.4 kg (12/07/24 11:16 AM) Dry Weight Obtained Via Patient/family s tated (12/07/24 11:16 AM) Social History Social History Type Response Smoking Status Never (less than 100 in lifetime); Use: pt denies entered on: 06/19/23 Sex Female Sex Representation Female (finding) Clinical Note * Event Display: GG EGD Please click on pdf link to open report Note * Vel Olivarez RN: PERFORM Event Display: Discharge/Transfer Note Hospital Authored Date: [id number] Nursing Discharge Note Entered On: 12/07/2024 13:19 EST Performed On: 12/07/2024 13:17 EST by Vel Olivarez RN Nursing Discharge Note 2 Discharge Time : 12/07/2024 13:34 EST Vel Olivarez RN - 12/07/2024 13:34 EST Discharge Level of Care at Discharge : Home/Custodial/Foster Care Patient Left Unit Via : Wheelchair Patient Accompanied Off Unit with : Responsible adult DC Instructions Provided & Signed by Pt : Yes Patient Understands D/C Instructions : Yes Patient Instructions Discharge Signed : Yes Did Pt have Specialty Bed or Wound Vac : No Vel Olivarez RN - 12/07/2024 13:17 EST * Vel Olivarez RN: PERFORM Event Display: Patient Education/Instruction Authored Date: [id number] Inpatient Adult Discharge Instructions. [address] [address] Name: MICHELE ADLER : 1940?? Visit: 12/07/2024 10:13?? Current Date: 12/07/2024 13:20 ?? Account: [id number]?? Inpatient Adult Discharge Instructions We would like to thank you for allowing us to assist you with your healthcare needs. The following includes patient education materials and information regarding your injury/illness. Our entire staffstrives to provide an excellent experience for our patients and their families. PLEASE ENSURE YOU FOLLOW-UP PER THE INSTRUCTIONS BELOW! ?? YOUR OPINION IS IMPORTANT TO US! Please complete the survey you may receive by mail or email. Your feedback will be used to make improvements to the healthcare experiences of our patients and their families. Surveys are administered by [employer] ?? If further treatment with your primary care physician or another doctor is recommended, it is important for you to keep the appointment. Call your primary care physician or return to the Emergency Department immediately if your condition worsens, fails to improve, or new symptoms develop. If you need to find a doctor, you can call [facility] Link for a referral at [phone] or toll free at [phone] or log in to [email or web address].. ?? [facility], in keeping with [facility] guidance, no longer requires face masks for staff, patientsor visitors in most situations. Similiar to time spent indoors at other locations, there is the chance that you were exposed to repiratory viruses during your time with us (such as flu or COVID-19). If you develop symptoms concerning for a viral respiratory infection, please seek testing (and treatment if indicated) from your medical provider or home test kit. ?? You can view and manage your care through the patient portal or by using a health care colin of your choosing. [employer] is a website that allows you to securely view your medical information including your hospital discharge summary, office visit summaries, medications and follow-up visits. You can also request appointments, renew medications, and request access to your medical information using a health care colin of your choosing, or just ask a question. You can enroll at [email or web address] or register during your next office visit. You have been discharged from [facility], Patient Care Unit: ENDO??. If you have any questions regarding these instructions, including results of studies pending, afteryou leave, please call us and we will be happy to assist you 09/06. [facility] Nursing Unit Direct Phone Number, for 09/06 contact and results of studies pending ENDO [address], [place] [id number] Your Care Team Attending Physician Isabella Sanchez MD?? Consulting Providers Isabella Sanchez MD?? Discharging Providers Isabella Sanchez MD Tests Performed Below is a partial list of the tests performed during your hospitalization. You may have had other tests and procedures not included in this list. Please discuss all test results with your provider. No tests performed during this visit.?? Primary Care Provider Dulce Marai Ya MD? Advance Directive Health Care Proxy on File Yes - Health Care Proxy Discharge Vitals Temperature: 97.2 DegF Height: 154.9 cm Pulse Rate: 65 bpm ?? Respiratory Rate: 20 br/min ?? Systolic Blood Pressure:??161 mm Hg??High ?? Diastolic Blood Pressure: 81 mm Hg ?? Oxygen Saturation: 97 % ?? Studies Pending All studies ordered during this hospital stay have been completed unless listed below. Please discuss all pending results with your provider listed above in these instructions. ?? No incomplete studies found?? What to do next Instructions From Your Doctor ?? Orders?? Daystay Protocol, ??12/07/24 10:24:00 EST?? You Need to Schedule the Following Appointments Follow Up with??Dulce Maria Ya MD Where: [address] [place] [address] [place] [address]- Discharge Medications MICHELE ADLER :1940 Visit Date:12/07/2024 Medications: Please continue your medications until treatment is completed or stopped by your provider. Medications not listed below should be discontinued. Discuss any questions related to medications with your provider. What How Much When Why Instructions Next Dose Unchanged Amlodipine (amLODIPine 5 mg oral tablet) 1 tab(s) Oral Daily Unchanged Aspirin (aspirin 81 mg oral delayed release tablet) 1 tab(s) Oral Daily Unchanged Atorvastatin (atorvastatin 80 mg oral tablet) 1 tab(s) Oral Daily Unchanged Calcium And Vitamin D Combination (calcium-vitamin D 600 mg-400 intl units oral tablet) 1 tab(s) Oral Twice a day Unchanged Estradiol Topical (estradiol 0.1 mg/ g vaginal cream) See instructions APPLY 1 GRAM VAGINALLY DAILY AT BEDTIME FOR 14 DAYS ?? Unchanged fosfomycin (fosfomycin 3 g oral granule for reconstitution) 1 Each Oral Once Unchanged Irbesartan (irbesartan 300 mg oral tablet) 1 tab(s) Oral Daily Essential hypertension Unchanged Levothyroxine (levothyroxine 0.1 mg oral tablet) See instructions TAKE 1 TABLET DAILY SAME DOSE AND HALF TABLET ON THE WEEKEND FRIDAY ?? Unchanged Lidocaine Topical (lidocaine 5% topical film) 1 patch(es) Topically Daily remove patches after 12 hours ?? Unchanged Meloxicam (meloxicam 7.5 mg oral tablet) 1 tab(s) Oral Daily Unchanged Metoprolol (Metoprolol Succinate ER 50 mg oral tablet, extended release) 1 tab(s) Oral Daily Essential hypertension Unchanged Multivitamin With Minerals (Centrum) Oral Daily Unchanged Pantoprazole (pantoprazole 40 mg oral delayed release tablet) 1 tab(s) Oral Twice a day Unchanged Potassium Chloride (Klor-Con M20 20 mEq oral tablet, extended release) 1 tab(s) Oral Daily Unchanged Tramadol (traMADol 50 mg oral tablet) 1 tab(s) Oral Every 12 hours as needed for NEEDED FOR PAIN Unchanged Venlafaxine (venlafaxine 150 mg oral capsule, extended release) 1 capsule Oral Daily Major depression, recurrent, chronic Duration: 90 Days Unchanged Zolpidem (zolpidem 5 mg oral tablet) 1 tab(s) Oral Daily at Bedtime Prescription Given During Visit No new medications prescribed at time of discharge.?? Laboratory Results Below is a partial list of the most recent Laboratory test results done prior to this discharge. You may have had other tests and procedures not included in this list. Please discuss all test resultswith your provider. Allergies (NKA means No Known Allergies) nitroglycerin??(Weakness present) gabapentin sulfa drugs Problems Active Problems??(33) 3-vessel CAD?? Anxiety disorder?? Atrophic pancreas?? Atrophic vaginitis?? Carotid atherosclerosis?? Cervical radiculopathy?? Chest pain?? Chronic abdominal pain?? Chronic back pain?? Chronic vulvitis?? Dysphagia?? Essential hypertension?? Gastroesophageal reflux disease?? History of TIA (transient ischemic attack)?? Hyperglycemia?? Hyperhidrosis?? Hyperlipidemia?? Hypokalemia?? Hypothyroidism?? Insomnia?? Left breast mass?? Lower extremity edema?? Lung nodule?? Major depression, recurrent?? Major depression, recurrent, chronic?? Muscle pain?? Neuropathic pain, arm?? Osteopenia?? Sacral insufficiency fracture?? Skin tag of vulva?? Trigeminal neuralgia?? Ureteric dilatation, right?? Urinary tract infection?? Education Materials Below is the list of Educational Leaflet Providered with your Discharge Instructions. [employer] Patient Education - Surgery Medical Daystay Surgical Overnight Discharge Instructions?? [employer] Patient Education - Stomach Polyps?? [employer] Patient Education - Hiatal Hernia Discharge Instructions?? Valuables and Belongings I fully understand and agree that [facility] accepts no responsibility for all my personal property including clothing, toilet articles, radios, jewelry, dentures, hearing aids, rings, money, or any other property that is in my possession or is brought to me after admission. I understand certain valuables may be placed in a hospital safe for a short period of time. I understand that the hospital is not liable for loss or damage due to accident, fire, or other natural occurrence while said property is in the safe. I accept full responsibility for any personal property that I keep with me, and will not hold the hospital responsible in case of loss or disappearance. I acknowledge that i have been encouraged to send valuables and belongings home. ?? Date for Pt to Sign Valuables/Belongings: 12/07/24 11:16:00 ?? Valuables & Belongings ?? Clothes Electronic devices Jewelry Monetary Items Personal devices Miscellaneous Medications (Valuables) Valuables at Bedside Jacket, Pants, Shirt, Shoes ? Purse Glasses ? Valuables Sent Home ? Valuables Sent to Security ? Valuables Sent to Locker ? Other Discharge Information ? Case Management Discharge Plan?? Discharge Plan?? Discharge Level of Care at Discharge: Home/Custodial/Foster Care ?? Pulmonary Rehab Status?? Pulmonary Rehab Discharge Status?? Respiratory Rate: 20 br/min ? Common Emergency Awareness Tips IS IT A STROKE? Act FAST and Check for these signs: FACE Does the face look uneven? ARM Does one arm drift down? SPEECH Does their speech sound strange? TIME Call at any sign of stroke ?? Heart Attack Signs Chest discomfort: Most heart attacks involve discomfort in the center of the chest and lasts more than a few minutes, or goes away and comes back. It can feel like uncomfortable pressure, squeezing, fullness or pain. Discomfort in upper body: Symptoms can include pain or discomfort in one or both arms, back, neck, jaw or stomach. Shortness of breath: With or without discomfort. Other signs: Breaking out in a cold sweat, nausea, or lightheaded. Remember, MINUTES DO MATTER. If you experience any of these heart attack warning signs, call to get immediate medical attention! ?? Smoking can increase your chances of developing chronic health problems and can cause harmful effects to other family members in your house. If you smoke, you are strongly encouraged to quit. Please call [facility] at [phone] or [phone] ([phone]) or log in to [email or web address] for referrals to smoking cessation programs. ?? 628 Suicide & Crisis Lifeline is available 09/06 if you or someone you know needs to find a reason to keep living. By calling 074 you'll be connected to a skilled, trained counselor at a crisis center in your area. INPATIENT DISCHARGE INSTRUCTIONS SIGNATURE PAGE MICEHLE ADLER Location:[facility] Registration Date and Time:12/07/2024 10:13 EST Primary Care Physician: Dulce Maria Ya MD, Attending Physician: Daniel RUIZ, Isabella Elizabeth, I MICHELE ADLER, have received the above patient education materials/instructions and have verbalized understanding. If ambulance or transport services are being used I further acknowledge being given a choice of service. ?? If you need to contact me, please call me at this number: . Patient/Process Mechanic Name: Patient/Process Mechanic Signature: Relationship to Patient: Witness Name/Signature: Date: * Vel Olivarez RN: PERFORM Event Display: Patient Education Leaflets Authored Date: [id number] Surgery Medical Daystay Surgical Overnight Discharge Instructions ?? 295 Medical Daystay/Surgical Overnight Discharge Instructions ? Since your coordination and judgment may be altered by medication and/or anesthesia, a responsible adult must drive you home from the hospital. ? If you have received medication for pain or sedation while under our care, you should not drive, operate machinery, drink alcohol, or sign any legal documents for 24 hours.?? You should have someone with you at home tonight. ? Remain at home the day of discharge.?? You may be up and about unless otherwise instructed by your physician. ? You may resume your daily prescription medication schedule.?? Any depressant medication should be avoided for 24 hours unless otherwise instructed by your surgeon or anesthesiologist. ? Call your physician for a follow-up appointment.? If you experience unusual or severe pain not relied by your pain medication, excessive bleedingor drainage, persistent nausea and vomiting, excessive swelling or redness, foul odor from incisionsite or fever over 100.6F, you need to call your physician. ? A follow-up phone call by a nurse will be made the day after your procedure.?? If you have stayed with us over night, you will not be receiving a follow-up phone call. ? Nausea and vomiting are a common side effect of prescription pain medication.?? We recommend that pills are not taken on an empty stomach.?? While taking any prescription pain medication you should not drive or drink alcohol. ? * Sher SHEN, Vel Medel: PERFORM Event Display: Patient Education Leaflets Authored Date: [id number] Stomach Polyps ?? 674 ?? Stomach Polyps ??You must carefully read the Consumer Information Use and Disclaimer below in order to understand and correctly use this information?? The Basics Written by the doctors and editors at [facility]??What are stomach polyps?Stomach polyps are tiny growths that form on the inner lining of your stomach. They are also known as gastric polyps. Stomach polyps are most often found when a person has an upper endoscopy for another health reason. An upper endoscopy is a test that lets a doctor look at the lining of the upper digestivetract (figure 1).??Many stomach polyps do not cause any symptoms. But it is important to diagnose and treat them because some polyps can turn into cancer.??What causes stomach polyps?There aredifferent types of stomach polyps. They can be caused by different things. Stomach polyps might:? Be caused by another health condition ??? Examples include H. pylori infection and certain types of gastritis (irritation of the stomach). ??? Form near a sore or hole in the stomach wall ??? These can include peptic ulcers or surgical openings (for example, if a person has a feeding tube). ??? Be related to long- term use of a medicine called a proton pump inhibitor or PPI ??? These medic yordy reduce the amount of acid the stomach makes. ??? Run in families ??? You might be more likely to have stomach polyps if you have family members who also have them. There are specific genes that can run in families that increase the risk of polyps. ??What are the symptoms of stomach polyps?Stomach polyps often cause no symptoms.When symptoms do happen, they can include belly pain, diarrhea, or throwing up. Some people have weight loss orblood in their vomit or bowel movements.??Large stomach polyps can block the opening from the stomach into the small intestine. They can also cause you to feel full without eating a lot of food.??Howare stomach polyps treated?When a doctor finds a stomach polyp, they will check it carefullyand look closely at the area around the polyp. The doctor might do a biopsy, which involves taking a sample of tissue to look at under a microscope. This way they can learn more about the type of polyp and the risk of it becoming cancer. They might also remove the polyp.??Treatment of stomach polyps depends on the number, type, size, and location of the polyps. Other things that might guide treatment include your age and risk for stomach cancer. (Your risk depends on your health, including whether you have gastritis, and whether you have had relatives with cancer.)??Depending on your situation, your doctor might recommend:? Removing the polyp or polyps right away ??? Checking a polyp to see if it changes over time ??? Doing regular tests to look for new polyps ??Depending on what hascaused your polyps, your doctor might recommend other treatment, too. For example, you might need treatment for an H. pylori infection.??In rare cases, stomach polyps can be cancerous. In this case, the doctor might have to remove part or all of your stomach.??Can stomach polyps be prevented?If you have an H. pylori infection, getting treatment can lower your risk of developing new stomachpolyps.??All topics are updated as new evidence becomes available and our??peer review process??is complete.??This topic retrieved from [employer] on:??Apr 22, 2022.Topic 925018 Version 1.0Release: 30.2.4 - C30.156?2021??[employer]. and/or its affiliates.??All rights reserved.Consumer Information Use and Disclaimer:This generalized information is a limited summary of diagnosis, treatment, and/or medication information. It is not meant to be comprehensive and should be used as a tool to helpthe user understand and/or assess potential diagnostic and treatment options. It does NOT include all information about conditions, treatments, medications, side effects, or risks that may apply to aspecific patient. It is not intended to be medical advice or a substitute for the medical advice, diagnosis, or treatment of a health care provider based on the health care provider's examination and assessment of a patient's specific and unique circumstances. Patients must speak with a health careprovider for complete information about their health, medical questions, and treatment options, including any risks or benefits regarding use of medications. This information does not endorse any treatments or medications as safe, effective, or approved for treating a specific patient. [employer] and its affiliates disclaim any warranty or liability relating to this information or the use thereof.The use of this information is governed by the Terms of Use, available at??https://www.Startlocal.Melophone/en/know/ftznezpi-mlwrfrhmdqzjl-estde?2021 [employer]. and its affiliates and/or licensors. All rights reserved.Last Updated 04/24/22? * Sher SHEN, Vel Medel: PERFORM Event Display: Patient Education Leaflets Authored Date: [id number] Hiatal Hernia Discharge Instructions ?? 671 ??Hiatal Hernia Discharge Instructions ??You must carefully read the Consumer Information Use and Disclaimer below in order to understand and correctly use this information?? About this topic Hiatal hernia is when part of the stomach is up in the chest. Normally, the stomach sits below the diaphragm, the muscle that divides the chest and abdomen. The diaphragm has a small opening in it tolet the esophagus, or swallowing tube, pass through. With a hiatal hernia, the stomach pushes up through that hole too.?? What care is needed at home? Ask your doctor what you need to do when you go home. Make sure??you ask questions ??? if you do not understand what the doctor says. This way you will know what you need to do. ??? Do not wear tight clothing over your belly. Wear clothes and belts that??are loose around your waist. ??? Raise the head of the bed up 6 to 8 inches (15 to 20 cm) or use a??wedge pillow. This position may keep stomach acid from getting into the esophagus. ?? What follow-up care is needed? Your doctor may ask you to make visits to the office to check on your progress. Be sure to keep these visits.?? What drugs may be needed? The doctor may order drugs to: ??? Lower stomach acid ??? Stop heartburn ??? Help with pain ??? Soften stools ?? Will physical activity be limited? You may have to limit your activity. Talk to the doctor about the right??amount of activity for you. ??? Avoid sports that involve lifting heavy things and bending. This can cause stress on your belly. ??? Avoid straining.??Having trouble passing stool or hard stools may make??your hernia worse. ?? What changes to diet are needed? ??Avoid large, heavy meals. Eat a few small meals throughout the day.Avoid drinking too much with meals.Wait at least 2 to 3 hours after eating before lying down or bending??over.Avoid foods that mayupset the stomach. Some people have an upset??belly after: ??? Coffee ??? [place] fruits and juices ??? Tomato products ??? Hot peppers ??? Fizzy drinks ??? Chocolate ??? Peppermint ??? Fatty foods ??? Beer, wine, and mixed drinks (alcohol) ?? What problems could happen? Lower blood levels of iron ??? No blood flow to hernia ?? What can be done to prevent this health problem? Keep a healthy weight. ??? Lose weight if you are overweight. ??? Avoid smoking. Ask for help if it's hard to quit. ??? Avoid foods that may upset the stomach. ??? Don???t overeat. Eat smallermeals. ??? Try to eat at least 2 to 3 hours before laying down. Avoid eating before sleeping at night. ??? When do I need to call the doctor? Heartburn that is worse when bending over or lying down ??? Swallowing problems ?? Teach Back: Helping You Understand The Teach Back Method helps you understand the information we are giving you. After you talk with the staff, tell them in your own words what you learned. This helps to make sure the staff has described each thing clearly. It also helps to explain things that may have been confusing. Before going home, make sure you can do these:? I can tell you about my condition. ??? I can tell you what changes I need to make with my diet or drugs. ??? I can tell you what I will do if I have more heartburn when I am??bending over or lying down. ?? Where can I learn more? NHS Choiceshttp://www.nhs.uk/conditions/hernia-hiatus/pages/introduction.aspxLast Reviewed Oxyt2330-67-59Jrtzlrad Information Use and Disclaimer:This generalized information is a limited summary of diagnosis, treatment, and/or medication information. It is not meant to be comprehensive and should be used as a tool to help the user understand and/or assess potential diagnostic and treatment options. It does NOT include all information about conditions, treatments, medications, side effects, or risks that may apply to a specific patient. It is not intended to be medical advice or a substitute for the medical advice, diagnosis, or treatment of a health care provider based on the health care provider's examination and assessment of a patient???s specific and unique circ umstances. Patients must speak with a health care provider for complete information about their health, medical questions, and treatment options, including any risks or benefits regarding use of medications. This information does not endorse any treatments or medications as safe, effective, or approved for treating a specific patient. [employer]. and its affiliates disclaim any warranty or liability relating to this information or the use thereof. The use of this information is governed by the Terms of Use, available at??https://www.Roadmapuw250ok.com/en/know/mqxnicqn-ucnndscbebwfd-cbeqhLuxl Updated 01/09/22? Patient Care team information Care Team Personnel Name: Chaim Harden RN Position: S RN Member Role: Primary Care Nurse Name: Dulce Maria Ya MD Position: S Physician - Primary Care Member Role: PCP Address: [address] [place] [address] Telecom: Care Team Related Persons Name: YULI ADLER Name: JAVI ADLER Insurance Providers Guarantor name: MICHELEINGRID NEFFKAYCEE Health Plan Information #: 1 Payer: MEDICARE PART B OUTPT Member Number: [id number] Policy Number: TRANG Group Number: [id number] Health Plan Information #: 2 Payer: [facility] Member Number: [id number] Policy Number: TRANG Group Number: [id number]
--- OUTSIDE RECORDS SUMMARY | 2025-01-05 11:56 | XMS_ITS | Data Portability ---
Author Organization [place] - [facility], Allergy Address [address] [place] [id number] Assessment No assessment recorded. Plan of Treatment Reminders Order Date Submit Date Provider Last Modified By Organization Details Last Modified Time Details Appointments None recorded. Lab None recorded. Referral gastroenter ologist referral - Appt 10/25 @ 4pm. Barium swallow in [facility], done in 2022. 2023 024 [id number] 2 [facility], [address], [place], [address], 14:48:49 Procedures None recorded. Surgeries None recorded. Imaging None recorded. Medication Orders None recorded. Patient TargetsNo targets recorded. Patient InstructionsNo instructions recorded. 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 Procedures Surgical History Date Name Laterality Status Provider Name and Address Organization Details Recorded Time 07/22/20 Fiberoptic Laryngoscopy (Comprehensive) completed KAMINI SCHERER MD [address] [place] [address], [id number] [place] - [facility] 08/01/2024 10:49:17 Imaging Results Imaging Date Name Status LastModified by [facility] Details LastModified Time 04/15/2023 imaging/diag nostic result [...] mg chewable tablet active Medicati on ID: [id number] B rand Name: Aspirin Children s Send Method: E-Prescr ibed Sub s Allowed: subs OK Medic ationGen ericName : Aspirin Children s Not Available Not Available Not Available hydrochlo rothiazid e 25 mg tablet 07/22 completed Medicati on ID: [id number] B rand Name: hydrochl orothiaz nikki Send [...] 24 hr 07/22 completed Medicati on ID: [id number] B rand Name: metoprol ol succinat e [...] mg tablet 07/22 completed Medicati on ID: [id number] B rand Name: escitalo pram oxalate Send [...] Updated DateTime 07/22/2024 154.94 cm 23.2 kg/m2 32156.86 g Mikki Wolff [place] - [facility] 07/22/2024 11:41:43 Social History None recorded. Functional Status None recorded. Mental Status None recorded. Family History Nothing Reported. Medical History Condition Response Hypertension Y GERD/Reflux Y Gynecological HistoryNo gynecological history recorded. Obstetrics History GPAL:G 0 P 0 0 0 0 Past Encounters Encounter ID Performer Location Encounter Start Date Encounter Closed Date Diagnosis/Indication Diagnosis SNOMED-CT Code Diagnosis ICD10 Code Diagnosis Note [id number] KAMINI SCHERER MD [facility] [address] [id number] 07/22/2024 10:54:20 07/22/2024 16:38:55 Pharyngeal dysphagia [id number] 9105 R13.13 83-year-ol d female with a history of reflux presents today for reassessme nt. She continues to have feelings of tightness in her throat lasting a few seconds at a time. We previously discussed this is consistent with cricophary ngeal spasm as was noted on her previous swallow study. 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 Only some mild erythema was noted.She think she may be interested in GI evaluation at this time, if she may perhaps benefit from dilation. Health Concerns Section Related Observation LastModified by Organization Detai ls LastModified Time None Recorded Concern Status LastModified by Organization Details LastModified Time None Recorded Advance Directives Directive None Recorded Payers Encounter Date Sequence Insurance Name Policy Number Policy Gonzalez Covered Member ID Gonzalez Member ID Guarantor Name 07/22/2024 1 MEDICARE B-[place]: [facility] [employer] Danisha Camilo [id number] Danisha Camilo 07/22/2024 2 [facility] [id number] Danisha Camilo [id number] Danisha Camilo Notes Date Note Type Note [...] of the vocal cord. KAMINI SCHERER MD [address] [place] [address], [place], [address], [place] - [facility] 08/01/2024 10:51:20 OBGyn Episode No OBEpisode recorded.
--- OUTSIDE RECORDS SUMMARY | 2025-01-05 11:56 | XMS_ITS | Clinical Summary ---
Author Organization [facility] Address [address] [place] [address] Phone Care Team Providers Care Automotive Hardware Engineer Name Role Phone Dulce Maria Ya MD Primary Care Provide r Active Problems Problem Noted Date Diagnosed Date Sacroiliitis, not elsewhere classified 4 Encounters Date Type Department Care Team Description 10/05/2024 Telephone Neurosurgery [address] [place] [address] Heather Esteves MA from Last 3 Months Surgical History Surgery Date Site/Laterality Comments CHOLECYSTECTOMY PROCEDURE: [place] LAPAROSCOPY SURG CHOLECYSTECTOMY HYSTERECTOMY PROCEDURE: HISTORICAL HYSTERECTOMY OTHER SURGICAL HISTORY PROCEDURE: [place] PRQ TRLUML CORONARY STENT W/ANGIO ONE ART/BRNCH Medical History Medical History Date Comments Essential hypertension DX:Essent ial hypertension H/O blood clots DX:H/O blood jennifer ts Anxiety state DX:Anxiety state Heart attack (CMS/HCC) DX:Heart attack (HCC) Carotid atherosclerosis DX:Carot id atherosclerosis Other pulmonary embolism wit hout acute cor pulmonale (CMS/HCC) DX:Other pulmonary embolism without acute cor pulmonale (HCC) Social History Tobacco Use Types Packs/Day Years Used Date Smoking Tobacco: Never Smokeless Tobacco: Never Alcohol Use Standard Drinks/Week Comments Not Currently 0 (1 standard drink = 0.6 oz pur e alcohol) Comments Unknown Sex and Gender Information Value Date Recorded Sex Assigned at Not on file Legal Sex Female 12:38 PM EST Gender Identity Not on file Sexual Orientation Not on file Obstetrics History Last Filed Vital Signs Vital Sign Reading Time Taken Comments Blood Pressure 175/94 05/30/2023 10:22 AM EDT Pulse 79 05/30/2023 10:22 AM EDT Temperature - - Respiratory Rate - - Oxygen Saturation - - Inhaled Oxygen Concentration - - Weight 59.2 kg (130 lb 8 oz) 05/30/2023 10:22 AM EDT Height 154.9 cm (5' 1 ) 05/30/2023 10:22 AM EDT Body Mass Index 24.66 05/30/2023 10:22 AM EDT Plan of Treatment Health Maintenance Due Date Last Done Comments DTaP,Tdap,and Td Vaccines (1 - Tdap) 1959 RSV Immunization Patients 60+ Years Old (1 - 1-dose 75+ series) 2014 Pneumococcal Vaccine: 50+ Years (2 of 2 - PPSV23) 06/19/2015 04/24/2015 Cholesterol Screening (Lipid Panel) 10/15/2022 Depression Screening 10/15/2022 Falls Risk Assessment 10/15/2022 Medicare Annual Wellness Visit 10/15/2022 Osteoporosis Screening (Bone Density Screening) 10/15/2022 Social Influencers of Health Screening 10/15/2022 COVID-19 Vaccine ( season) 2024 09/14/2021, 01/25/2021, 12/28/2020 Influenza Vaccine (#1) 2024 3, 08/19/2022, 08/29/2021, Additional history exists Hypertension/CHF/CAD Annual BMP Blood Test 08/27/2024 Zoster Vaccines Completed 09/16/2022, 09/17, 03/07/2016 HIB Vaccines Aged Out No longer eligi ble based on patient's age to complete this topic HPV Vaccines Aged Out No longer eligi ble based on patient's age to complete this topic Hepatitis A Vaccines Aged Out No long er eligible based on patient's age to complete this topic Hepatitis B Vaccines Aged Out No long er eligible based on patient's age to complete this topic IPV Vaccines Aged Out No longer eligi ble based on patient's age to complete this topic MMR Vaccines Aged Out No longer eligi ble based on patient's age to complete this topic Meningococcal ACWY Vaccine Aged Out N o longer eligible based on patient's age to complete this topic Meningococcal B Vacine Aged Out No lo nger eligible based on patient's age to complete this topic RSV Immunization Patients Under 20 months Aged Out No longer eligible based on patient's age to complete this topic Varicella Vaccines Aged Out No longer eligible based on patient's age to complete this topic Insurance [facility] Care Teams Automotive Hardware Engineer Relationship Specialty Start Date End Date Dulce Maria Ya MD [address] [place], [place] [address]cammy Ludwig [place] PCP - General 06/16/13
== END 2025-01-05 12:38 | disposition home or self-care (01) ==
PROVIDERS: PCP Internal Medicine; Visit Provider Neurological Surgery
DX: M54.16 Radiculopathy, lumbar region (principal)
CPT/HCPCS: 99213

== ENCOUNTER → 2025-01-05 11:11 | Outpatient (BNVA) | payer MEDICARE, OTHER, SELFPAY | PROVIDERS: PCP Internal Medicine; Visit Provider Neurological Surgery | DX: M54.16 Radiculopathy, lumbar region (principal) | CPT/HCPCS: 99212 ==

== ENCOUNTER 2025-07-21 18:44 | Emergency (ER) | payer MEDICARE, OTHER, SELFPAY ==
--- OUTSIDE RECORDS SUMMARY | 2025-07-17 23:59 | XMS_ITS | Continuity of Care Document ---
Author Organization [facility] Address [address] [facility], [address] d Floor, [address] [place] [id number]- Care Team Providers Care Emt B Name Role Phone Felton RUIZ, Dulce Maria Primary Care Physici an Encounter [facility] [place] Date(s): 06/17/25 - 07/17/25 [facility] [address] [facility] [address], [address] [place] [id number] Attending Physician: Jammie Hdez Admitting Physician: AdmJammie erickson Referring Physician: Admtr, [id number] Encounter Type: Triage Allergies, Adverse Reactions, Alerts Substance Criticality Severity [...] virus vaccine, inactivated 08/10/10 Micheal rded SARS-CoV-2(COVID-19)mRNA-LNP vac([id number]) 08/06/24 Recorded SARS-CoV-2(COVID-19)mRNA-LNP vac([id number]) 08/16/23 Recorded zoster vaccine, inactivated 07/06/24 Recorded zoster vaccine, inactivated 09/16/22 Recorded zoster vaccine, inactivated 09/27/16 Recorded [id number] 12y+ bivalent booster vax 08/19/22 Recorded SARS-CoV-2 (COVID-19) mRNA BNT-162b2 vac 09/14/21 Recorded SARS-CoV-2 (COVID-19) mRNA BNT-162b2 vac 01/25/21 Recorded SARS-CoV-2 (COVID-19) mRNA BNT-162b2 vac 12/28/20 Recorded Influenza Virus Vaccine (oldterm) 08/10/17 Recorde d Influenza Virus Vaccine (oldterm) 09/06/16 Recorde d Zoster Vaccine Live 03/07/16 Recorded pneumococcal 13-valent vaccine 04/24/15 Recorded pneumococcal 23-valent vaccine 08/2011 Recorded Medications amLODIPine 5 mg oral tablet 1 tablet, By Mouth, Daily, # 90 tablet, 1 Refills, Maintenance, 01/31/25 9:23:00 PM EDT, [id number], 155, cm, 01/28/25 9:20:00 EDT, Height, 55, kg, 01/28/25 9:20:00 EDT, Dry Weight Start Date: 01/31/25 Status: Ordered Medication Dispense Status: Completed Quantity: 90.0 Unit: tablet Total Allowed Fills: 1 Fills Dispensed: 0 aspirin 81 mg oral delayed release tablet 81 mg, 1, tablet, By Mouth, Daily, # 30 tablet, Refills 0, Maintenance, 01/11/20 10:29:00 AM EST Start Date: 01/11/20 Status: Ordered Medication Dispense Status: Completed Quantity: 30.0 Unit: tablet Total Allowed Fills: 1 Fills Dispensed: 0 atorvastatin 80 mg oral tablet 1 tablet, By Mouth, Daily, # 90 tablet, 1 Refills, Maintenance, 06/07/25 1:46:00 PM EDT, [facility]/pharmacy #[id number], 155, cm, 06/07/25 13:06:00 EDT, Height, 55.3, kg, 06/03/25 18:39:00 EDT, Dry Weight Start Date: 06/07/25 Status: Ordered Medication Dispense Status: Completed Quantity: 90.0 Unit: tablet Total Allowed Fills: 2 Fills Dispensed: 0 Indications: Hyperlipidemia, unspecified; betamethasone topical valerate 0.1% ointment See Instructions, Apply a very thin dab to affected area twice daily x 2 weeks, then nightly x 2 weeks, then every other night x 2 weeks, # 45 Gm, 1 Refills, Acute 07/07/26 11:43:00 AM EDT, 07/07/25 11:43:00 AM EDT, Ointment, [facility]/pharmacy #[id number], Partial fill upon patient request if the prescription is for a schedule II opioid drug., Apply a very thin dab to affected area twice daily x 2 weeks, thennightly x 2 weeks, then every other night x 2 weeks, 155, cm, 07/07/25 11:07:00 EDT, Height, 55, kg, 06/29/25 14:08:00 EDT, Dry Weight Start Date: 07/07/25 Stop Date: 07/07/26 Status: Ordered Medication Dispense Status: Completed Quantity: 45.0 Unit: g Total Allowed Fills: 2 Fills Dispensed: 0 calcium-vitamin D 600 mg-400 intl units oral tablet 1 tablet, By Mouth, 2 times a day, # 180 tablet, 1 Refills, Maintenance, 11/18/24 10:13:00 AM EST, [facility] [id number], 90, TAKE 1 TABLET BY MOUTH TWICE A DAY, 156, cm, 11/08/24 6:34:00 EST, Height, 57, kg, 11/08/24 6:34:00 EST, Dry Weight Start Date: 11/18/24 Status: Ordered Medication Dispense Status: Completed Quantity: 180.0 Unit: tablet Total Allowed Fills: 1 Fills Dispensed: 0 Centrum 1 tablet, By Mouth, Daily, 0 Refills, Maintenance, 01/11/20 10:30:00 AM EST Start Date: 01/11/20 Status: Ordered Medication Dispense Status: Completed Total Allowed Fills: 1 Fills Dispensed: 0 irbesartan 300 mg oral tablet See Instructions, TAKE 1 TABLET BY MOUTH EVERY DAY, # 90 tablet, 1 Refills, Maintenance, 07/14/25 7:03:00 PM EDT, [id number], 155, cm, 07/12/25 5:11:00 EDT, Height, 55.7, kg, 07/12/25 5:11:00 EDT, Dry Weight Start Date: 07/14/25 Status: Ordered Medication Dispense Status: Completed Quantity: 90.0 Unit: tablet Total Allowed Fills: 1 Fills Dispensed: 0 Jelcaine Sterile 2% topical gel with applicator See Instructions, Apply a small amount to affected area as needed, # 10 mL, 0 Refills, Maintenance,07/06/25 4:55:00 PM EDT, [facility]/pharmacy #[id number], Partial fill upon patient request if the prescription is for a schedule II opioid drug., Apply a small amount to affected area as needed, 155, cm, 06/29/2514:08:00 EDT, Height, 55, kg, 06/29/25 14:08:00 EDT, Dry Weight Start Date: 07/06/25 Status: Ordered Medication Dispense Status: Completed Quantity: 10.0 Unit: mL Total Allowed Fills: 1 Fills Dispensed: 0 levothyroxine 0.1 mg oral tablet See Instructions, TAKE 1 TABLET DAILY SAME DOSE AND HALF TABLET ON THE WEEKEND FRIDAY, # 90 tablet,1 Refills, Maintenance, 02/22/25 7:01:00 PM EDT, [id number], 155, cm, 02/11/25 9:41:00 EDT, Height, 55, kg, 02/07/25 15:54:00 EDT, Dry Weight Start Date: 02/22/25 Status: Ordered Medication Dispense Status: Completed Quantity: 90.0 Unit: tablet Total Allowed Fills: 1 Fills Dispensed: 0 lidocaine 5% topical film 1 patch, Topically, [...] Dry Weight Start Date: 10/12/24 Status: Ordered Medication Dispense Status: Completed Quantity: 30.0 Unit: patch Total Allowed Fills: 2 Fills Dispensed: 0 Metoprolol Succinate ER 50 mg oral tablet, extended release 1, tablet, By Mouth, Daily, # 90 tablet, Refills 1, Maintenance, 04/06/25 10:05:00 AM EDT, Route to Pharmacy Electronically, [id number], 155, cm, 03/24/25 9:03:00 EDT, Height, 57, kg, 03/18/25 17:04:00 EDT, Dry Weight Start Date: 04/06/25 Status: Ordered Medication Dispense Status: Completed Quantity: 90.0 Unit: tablet Total Allowed Fills: 1 Fills Dispensed: 0 pantoprazole 40 mg oral delayed release tablet 1 tablet, By Mouth, 2 times a day, # 180 tablet, 1 Refills, Maintenance, 04/26/25 8:49:00 PM EDT, 155, cm, 03/24/25 9:03:00 EDT, Height, 57, kg, 03/18/25 17:04:00 EDT, Dry Weight Start Date: 04/26/25 Status: Ordered Medication Dispense Status: Completed Quantity: 180.0 Unit: tablet Total Allowed Fills: 2 Fills Dispensed: 0 Plavix 75 mg oral tablet 75 mg, 1, tablet, By Mouth, Daily, # 90 tablet, Refills 0, Tot. Refills 0, Maintenance, 06/04/25 2:18:00 PM EDT, Route to Pharmacy Electronically, [facility]/pharmacy #[id number], Partial fill upon patient requestif the prescription is for a schedule II opioid drug., 155, cm, 06/04/25 11:31:00 EDT, Height, 55.3, kg, 06/03/25 18:39:00 EDT, Dry Weight Start Date: 06/04/25 Stop Date: 09/02/25 Status: Ordered Medication Dispense Status: Completed Quantity: 90.0 Unit: tablet Total Allowed Fills: 1 Fills Dispensed: 0 Potassium Chloride (Hft-Eilg-Ikj M20) 20 mEq oral tablet, extended release 1 tablet, By Mouth, Daily, # 90 tablet, 2 Refills, Maintenance, 06/30/25 10:29:00 AM EDT, [id number], 155, cm, 06/29/25 14:08:00 EDT, Height, 55, kg, 06/29/25 14:08:00 EDT, Dry Weight Start Date: 06/30/25 Status: Ordered Medication Dispense Status: Completed Quantity: 90.0 Unit: tablet Total Allowed Fills: 1 Fills Dispensed: 0 traMADol 50 mg oral tablet 1 tablet = 50 mg, By Mouth, Every 12 hours, PRN as needed for pain, # 30 tablet, 3 Refills, Maintenance, 06/30/25 5:59:00 PM EDT, Tablet, [facility]/pharmacy #[id number], Partial fill upon patient request if the prescription is for a schedule II opioid drug., 155, cm, 06/29/25 14:08:00 EDT, Height, 55, kg, 06/29/25 14:08:00 EDT, Dry Weight Start Date: 06/30/25 Status: Ordered Medication Dispense Status: Completed Quantity: 30.0 Unit: tablet Total Allowed Fills: 4 Fills Dispensed: 0 zolpidem 5 mg oral tablet 1 tablet = 5 mg, By Mouth, Daily at bedtime, # 30 tablet, 3 Refills, Maintenance, 04/25/25 4:38:00 PMEDT, [facility]/pharmacy #[id number], 155, cm, 03/24/25 9:03:00 EDT, Height, 57, kg, 03/18/25 17:04:00 EDT, Dry Weight Start Date: 04/25/25 Status: Ordered Medication Dispense Status: Completed Quantity: 30.0 Unit: tablet Total Allowed Fills: 4 Fills Dispensed: 0 Problem List Condition Confirmation Course Effective Dates Status H ealth Status Informant Anxiety disorder Confirmed Active Atrophic vaginitis Confirmed Active Atrophic pancreas Confirmed Active Left breast mass Confirmed Active Carotid atherosclerosis Confirmed Active Basal ganglia stroke Confirmed Active Cervical radiculopathy Confirmed Active Chest pain Confirmed Active Chronic abdominal pain Confirmed Active Chronic back pain Confirmed Active Chronic vulvitis Confirmed Active Diarrhea Confirmed Active Ureteric dilatation, right Confirmed Active [...] Active Major depression, recurrent, chronic Confirmed Active Stenosis of cerebral artery Confirmed Active Sacral insufficiency fracture Confirmed Active Trigeminal neuralgia Confirmed Active 3-vessel CAD Confirmed Active Urinary tract infection Confirmed Active Social History Social History Type Response Smoking Status Never (less than 100 in lifetime); Use: pt denies entered on: 06/19/23 Sex Sex Representation Female (finding) Patient Care team information Care Team Personnel Name: Kayley Bills Position: [facility] Outreach Member Role: Lifetime Consulting Physician Name: David Martinez Position: [facility] PCO Associate Professional Member Role: Lifetime Consulting Provider Address: [address] [place] [id number] Telecom: Name: Dulce Maria Ya MD Position: [facility] Physician - Primary Care Member Role: PCP Address: [address] [place] [id number] Telecom: Care Team Related Persons Name: YULI ADLER Name: JAVI ADLER Insurance Providers Guarantor name: MICHELE ADLER Health Plan Information #: 1 Payer: MEDICARE B Payer Identifier: NA Member Number: [id number] Group Number: NA Subscriber Identifier: NA Relationship to Subscriber: self Coverage Type: NA Coverage Verification Date: NA Telecom: NA Address: Health Plan Information #: 2 Payer: [facility] [employer] Payer Identifier: NA Member Number: [id number] Group Number: [id number] Subscriber Identifier: NA Relationship to Subscriber: self Coverage Type: Commercial Indemnity Coverage Verification Date: NA Telecom: Address:
[2025-07-21 18:58] VITALS: BP 167/78; PULSE 69; O2SAT 98
[2025-07-21 19:03] VITALS: BP 165/72; PULSE 65; RESP 16; TEMP 36.6; O2SAT 94; BMI 22.6
--- NOTE | 2025-07-21 19:12 | ED.GENADULT ---
HPI - General Adult General Chief complaint: General Medical Stated complaint: Chronic burning feet feeling Time Seen by Provider: 07/21/25 21:10 Source: patient, RN notes reviewed and old records reviewed Mode of arrival: EMS Limitations: no limitations History of Present Illness ED Provider: Suzie SOLIMAN narrative: 84-year-old female with past medical history significant for trigeminal neuralgia, lumbar radiculopathy, peripheral neuropathy presenting for evaluation of burning in the feet. The patient reports that she has had increase burning her feet that keeps her up at night. She also reports a sharp pain in her back that radiates around her lower abdomen. She reports chronic constipation but had a bowel movement today. She also endorses pain in her jaw. She reports that she had previously been on gabapentin but it was discontinued when they increased it from 100 mg t.i.d. up to 300 mg TID and she had facial swelling at the higher dose. She takes tramadol for her chronic pain Denies any recent injuries, denies leg swelling, denies any fevers, chills Related Data Home Medications ?Medication ?Instructions ?Recorded ?Confirmed amlodipine 5 mg tablet 5 mg PO DAILY 11/03/24 atorvastatin 80 mg tablet 80 mg PO DAILY 11/03/24 hydrochlorothiazide 25 mg tablet 25 mg PO DAILY 11/03/24 irbesartan 300 mg tablet 300 mg PO DAILY 11/03/24 metoprolol succinate 50 mg 50 mg PO DAILY 11/03/24 tablet,extended release 24 hr pantoprazole 40 mg tablet,delayed 40 mg PO BID 11/03/24 release tramadol 50 mg tablet 50 mg PO BID PRN 11/03/24 zolpidem 5 mg tablet 5 mg PO BEDTIME 11/03/24 Previous Rx's ?Medication ?Instructions ?Recorded carbamazepine 100 mg chewable 50 mg (1/2 x 100 mg) PO QID #60 07/21/25 tablet tabs Allergies Allergy/AdvReac Type Severity Reaction Status Date / Time gabapentin Allergy Mild Swelling Verified 07/21/25 19:11 Review of Systems Constitutional: Constitutional: Denies body ache(s), Denies chills and Denies fever(s) Eyes: Eyes: Denies blurry vision ENT: Denies vertigo and Denies dizziness Cardiovascular: Cardiovascular: Denies chest pain and Denies dyspnea on exertion Respiratory: Respiratory: Denies cough and Denies dyspnea on exertion Gastrointestinal: Gastrointestinal: Denies abdominal pain, Reports nausea and Denies vomiting Musculoskeletal: Musculoskeletal: Reports back pain, Reports radiating pain into limb and Reports tingling Integumentary/Breasts: Skin/Breast: Denies rash Neurologic: Denies vertigo, Denies dizziness, Reports radicular pain and Reports tingling PMFSH Social History Social History Alcohol intake: never Smoked in Last 30 Days: No Use of substances other than those prescribed or required for medical reasons: No Any prior treatment program specific to substance use: No Advance Directives: No Advance Directives Information Provided: No Physical Exam ED Vital Signs: Vital Signs - 24 hr 07/21/25 19:03 07/21/25 20:35 07/21/25 22:27 Temperature 97.8 F 98.1 F 98 F Pulse Rate 65 67 66 Respiratory Rate 16 16 16 Blood Pressure 165/72 H 161/75 H 146/67 H Pulse Oximetry 94 95 93 Oxygen Delivery Method Room Air Room Air Room Air BMI result Body Mass Index 22.6 Const General: healthy appearing, comfortable, no acute distress, alert and awake Nutritional Appearance: well nourished Orientation/consciousness: patient oriented x3 HENMT Head: Yes normocephalic and Yes atraumatic Eyes Eyelids: Yes eyelids normal Conjunctivae: conjunctivae normal Sclerae: sclerae normal Corneas: corneas normal Pupils: Equal, round and reactive pupils present EOM: EOMs intact bilaterally Neck Neck: Yes full ROM Resp Effort & Inspection: normal respiratory effort, able to speak in complete sentences and not labored Cardio Rate: regular rate Rhythm: regular rhythm GI Inspection: No distended Palpation (GI): Soft to palpation, not firm, nontender, no guarding and not rigid Back/Spine/Pelvis Other: There was no significant thoracic or lumbar tenderness. Straight leg raise negative bilaterally. Skin General skin exam: elasticity normal Neuro Other: There was no deformity to the lower extremities. No overlying skin changes such as ecchymosis or erythema to lower extremities bilaterally. No calf edema, no calf tenderness. Distal sensation is intact to all digits of the lower extremities bilaterally. DP pulses are 2+ and equal. General: patient oriented x3 Cranial nerves: Yes CN's II-XII intact bilaterally, Yes Equal, round and reactive pupils present and Yes Bilaterally intact EOM present Cognition (Neuro): normal cognition Extrem Other: Moving all extremities well without any obvious deformities Course Course Course Narrative: This is a rapid medical exam performed by Kings Neff NP: Additional HPI, ROS, PE not included below will be deferred to primary provider. Patient is an 84-year-old female with history of lumbar radiculopathy, recently treated for UTI presenting to the emergency department with complaint of severe burning to bilateral feet and ankles with the associated numbness to her toes which is worse at night when lying down. Also complains of some associated ankle swelling. States this has been going on for the past few weeks. Also complaining of lower back pain and right lower quadrant tenderness 4 months, states has seen PCP for this. Feels as though recent UTI may not have fully resolved after treatment. Also complaining of difficulty swallowing since colonoscopy around 1 month ago and right-sided mouth pain with eating. Plan: Labs, UA Reevaluation(s) Reevaluation #1: The patient is requesting admission because she does not want to go home today with the amount of discomfort she is in. I explained to the patient that she has a no acute issues warranting admission. Her chronic pain and chronic neuropathy is better managed as an outpatient with her primary providers. I did offer her to be evaluated by case management for possible rehab placement if she truly does not feel safe at home. She adamantly refuses consideration for rehab. She will ultimately be discharged home Time: 00:23 Medications Administered Discontinued Medications Generic Name Dose Route Start Last Admin Trade Name Percyq PRN Reason Stop Dose Admin Carbamazepine 50 mg 07/21/25 22:15 07/21/25 22:51 Carbamazepine 100 Mg Tab.Chew PO 07/21/25 22:16 50 mg ONCE ONE Administration Tramadol HCl 50 mg 07/21/25 22:22 07/21/25 22:52 Tramadol Hcl 50 Mg Tablet PO 07/21/25 22:23 50 mg ONCE ONE Administration Medical Decision Making Medical Decision Making MDM Narrative: 84-year-old female presents for evaluation of multiple complaints including back pain, facial pain, burning pain her feet. She has a history of multiple radicular issues and neuropathic pain. She is not on gabapentin as she describes an angioedema like reaction in the past. Therefore I will not continue her on gabapentin or start her on Lyrica. Her physical exam is quite reassuring, she has no objective findings. Her vital signs are stable and she is resting comfortably. Her labs are significant for a mild leukopenia and anemia in his mild at 11.5 with a hemoglobin 33.3, no previous labs for comparison. Chemistries have no concerning abnormalities, electrolytes all within normal limits, renal function within normal limits. BNP is elevated to 186 but there is no shortness of breath, crackles on exam. I have low suspicion for acute CHF exacerbation. It seems that most of the patient's symptoms are chronic and she is not happy with the outpatient management. I had a lengthy discussion with her regarding this. In the emergency department is not a good modality to manage chronic neuropathic pain. I agreed to trial her on Tegretol, low-dose. She is already on tramadol Differential Diagnosis Differential Diagnoses: The differential diagnosis associated with the presentation includes Neuropathy Trigeminal neuralgia Malingering Chronic pain syndrome Constipation DVT less likely Lab Data MDM Lab Attestation statement: I reviewed the patient's lab results. As above 07/21/25 19:45 07/21/25 19:45 Labs: Lab Results 07/21/25 Range/Units 19:45 WBC 3.8 L (4.8-10.8) X10*3/uL RBC 3.63 L (4.20-5.50) X10*6/uL Hgb 11.5 L (12.0-16.0) g/dl Hct 33.3 L (37.0-47.0) % MCV 91.7 (80.0-98.0) fL MCH 31.7 (27.0-33.0) pg MCHC 34.5 (31.0-35.0) g/dl RDW 12.5 (11.0-16.0) % Plt Count 189 (160-400) X10*3/uL MPV 10.1 (9.4-12.3) fL Immature Gran % (Auto) 0.3 (0.0-0.4) % Neut % (Auto) 50.0 (45-73) % Lymph % (Auto) 42.0 H (20-40) % Desha % (Auto) 7.4 (2-11) % Eos % (Auto) 0.3 (0-4) % Baso % (Auto) 0.0 (0-2) % Lymph # (Auto) 1.6 (1.2-4.9) X10*3/uL Desha # (Auto) 0.3 (0.1-1.2) X10*3/uL Eos # (Auto) 0.0 (0.0-0.4) X10*3/uL Baso # (Auto) 0.0 (0.0-0.2) X10*3/uL Abs Immat Gran (auto) 0.01 (0.00-0.03) X10*3/uL Absolute Neuts (auto) 1.9 L (2.0-8.3) x10*3/uL Absolute Nucleated RBC 0.000 (0.0-0.012) X10*3/uL Nucleated RBC % (auto) 0.0 (0.0-0.2) /100WBC Sodium 144 (135-145) mmol/L Potassium 4.7 (3.3-5.1) mmol/L Chloride 107 (96-108) mmol/L Carbon Dioxide 28 (22-29) mmol/L Anion Gap 14 (12-20) BUN 12 (9-16) mg/dL Creatinine 0.66 (0.5-1.4) mg/dL Estim Creat Clear Calc 47.0 Estimated GFR > 60 Random Glucose 96 (60-115) mg/dL Calcium 9.6 (8.4-10.2) mg/dL Magnesium 2.2 (1.6-2.6) mg/dL Total Bilirubin 0.4 (0.0-1.0) mg/dL AST 32 H (5-31) U/L ALT 30 (0-31) U/L Alkaline Phosphatase 112 (39-117) U/L B-Natriuretic Peptide 186 H (<100) pg/mL Total Protein 6.5 (6.5-8.0) g/dL Albumin 4.4 (3.5-5.0) g/dL Tests considered The following testing was considered but not selected: Consider CT scan of the abdomen pelvis, however the patient's exam is reassuring, low suspicion for obstruction as she had a bowel movement this morning. This was deferred Discharge Plan Discharge Clinical Impression: Neuropathy Patient Disposition: Home, Self-Care Instructions: Peripheral Neuropathy (ED) Additional Instructions: I do not feel it is appropriate to restart you on gabapentin if you and had facial swelling in the past while on this. You may trial Tegretol 50 mg up to every 6 hours as needed for neuropathy or neuropathic pain. You may take this in addition to your other medications. Prescriptions: New carbamazepine 100 mg tablet,chewable 50 mg PO QID Qty: 60 0RF No Action zolpidem 5 mg tablet 5 mg PO BEDTIME hydrochlorothiazide 25 mg tablet 25 mg PO DAILY atorvastatin 80 mg tablet 80 mg PO DAILY metoprolol succinate 50 mg tablet extended release 24 hr 50 mg PO DAILY pantoprazole 40 mg tablet,delayed release (DR/EC) 40 mg PO BID amlodipine 5 mg tablet 5 mg PO DAILY tramadol 50 mg tablet 50 mg PO BID PRN irbesartan 300 mg tablet 300 mg PO DAILY Print Language: Sinhala
[2025-07-21 19:50] LABS: MANUAL DIFF FLAG NO
[2025-07-21 19:52] LABS: Hematocrit 33.3 % (37.0-47.0); Hemoglobin 11.5 g/dl (12.0-16.0); Imm Gran Abs Auto 0.01 X10*3/uL (0.00-0.03); Imm Gran Pct Auto 0.3 % (0.0-0.4); Lymphocytes Absolute Auto 1.6 X10*3/uL (1.2-4.9); Mean Corpuscular HGB Conc 34.5 g/dl (31.0-35.0); Mean Corpuscular Hemoglobin 31.7 pg (27.0-33.0); Mean Corpuscular Volume 91.7 fL (80.0-98.0); NRBC Abs Auto 0.000 X10*3/uL (0.0-0.012); NRBC Pct Auto 0.0 /100WBC (0.0-0.2); Platelet Count 189 X10*3/uL (160-400); Red Blood Count 3.63 X10*6/uL (4.20-5.50); White Blood Count 3.8 X10*3/uL (4.8-10.8)
[2025-07-21 20:08] LABS: Alanine Aminotransferase 30 U/L (0-31); Albumin Level 4.4 g/dL (3.5-5.0); Alkaline Phosphatase 112 U/L (39-117); Anion Gap 14 (12-20); Aspartate Amino Transferase 32 U/L (5-31); Blood Urea Nitrogen 12 mg/dL (9-16); Calcium 9.6 mg/dL (8.4-10.2); Carbon Dioxide 28 mmol/L (22-29); Chloride 107 mmol/L (96-108); Creatinine Clr Calc Pharmacy 47.0; Estimated Glomerular Filt Rate > 60; Magnesium 2.2 mg/dL (1.6-2.6); Potassium 4.7 mmol/L (3.3-5.1); Sodium 144 mmol/L (135-145); Total Protein 6.5 g/dL (6.5-8.0)
[2025-07-21 20:11] LABS: B Type Natriuretic Peptide 186 pg/mL (<100)
--- OUTSIDE RECORDS SUMMARY | 2025-07-21 20:31 | XMS_ITS | Clinical Summary ---
Author Organization [facility] Address [address] [place] [id number] Phone Care Team Providers Care Flight Surveyor Name Role Phone Dulce Maria Ya MD Primary Care Provide r Allergies Active Allergy Reactions Criticality Noted Date Comments Phs Other Free Text-See Phs Viewer 01/11/2013 nitroglycerin solution Sulfa (Sulfonamide Antibiotics) Hives 01/11/2013 Medications atorvastatin (LIPITOR) 80 MG tablet Take 1 tablet by mouth daily. Active levothyroxine (LEVOXYL) 100 MCG tablet 1 tablet every morning on an empty stomach Orally Once a day Active escitalopram oxalate (LEXAPRO) 20 MG tablet Take 0.5 tablets by mouth daily. Active labetalol (TRANDATE) 300 MG tablet Take 1 tablet by mouth 2 (two) times a day. Active irbesartan (AVAPRO) 300 MG tablet Take 1 tablet by mouth daily. Active zolpidem (AMBIEN) 5 MG tablet Orally Active potassium chloride (MICRO-K) 10 mEq CR capsule Orally Activ e metoprolol succinate (TOPROL-XL) 25 MG 24 hr tablet Acti ve clobetasol (TEMOVATE) 0.05 % ointment 1 application to affected area Externally Twice a day Active folic acid/multivit-m in/lutein (CENTRUM SILVER ORAL) Active Medication-Free Text Calcium Active aspirin (ASPIR-81) 81 MG EC tablet Active hydroCHLOROthia zide (HYDRODIURIL) 25 MG tablet Take 1 tablet by mouth daily. Active estradiol (ESTRACE) 0.01 % (0.1 mg/gram) vaginal creamIndication s:Vaginal burning Apply 0.5 g (pea sized amount) to the vaginal opening nightly for two weeks, then MWF. 42.5 g 1 9 Active nystatin-triamc inolone creamIndication s:Vaginal burning Apply to affected area 3 times per week. Use pea sized amount. 30 g 1 9 Active estradiol (VAGIFEM) 10 mcg TabIndications: Vulvar atrophy Place 1 tablet (10 mcg total) vaginally 2 (two) times a week. 24 tablet 3 9 Active pramoxine-hydro cortisone cream Apply 1 application topically 3 (three) times a week. Active Active Problems Problem Noted Date Diagnosed Date Vulvar irritation 03/17/2019 Assessment & Plan (04/21/2019 4:15 PM EDT): Sx much improved. Plan: Continue the Yuvafem two nights in the vagina. Continue indefinitely. For next two weeks: Apply small lentil size of hydrocortisone cream followed by some of the estrogen cream three nights a week and then discontinue. Assessment & Plan (03/17/2019 4:55 PM EDT): Physical exam findings appear most consistent with a contact dermatitis as well as vaginal vulvar atrophy. Since patient is not certain which creams she has at home, she will call me. My plan initially was to prescribe triamcinolone ointment. She may have clobetasol ointment at home which may be used as well. apply a small amount of clobetasol ointment to the itchy irritated area of skin twice a day for 2 weeks. Then decrease to once a day for 2 weeks until you have your follow-up appointment. On the days you apply the Estrace vaginal cream apply this ointment first followed by the Estrace cream which is being applied 2 nights a week. Discontinue baths. Consider sitz bath for junito-care/cleansing around hemorrhoids. 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 Advised patient that as needed or a couple weeks of estrogen applied locally to the genital skin will not provide relief of atrophy. Continuous use reviewed. I have suggested she may do better with a vaginal estrogen tablet twice a week and at the same time applying a small amount of cream to the inner labia and affected areas. Assessment & Plan (02/02/2019 3:18 PM EDT): Exam today consistent with atrophy, no architecture changes or discoloration. Normal wet mount. Reviewed recommendation for repeat trial of estrace this time applied externally. Can also alternate with Mycolog. Rx sent to pharmacy, reviewed medication instructions/areas of application. History of pulmonary embolus (PE) 07/16/2018 Non-smoker 12/24/2013 Overview (01/07/2015): Non-smoker; from note dated 01/11/13 Social History Tobacco Use Types Packs/Day Years Used Date Smoking Tobacco: Never Smokeless Tobacco: Never Alcohol Use Standard Drinks/Week Comments Yes 0 (1 standard drink = 0.6 oz pur e alcohol) Education Answer Date Recorded Are you interested in more education? Not on blayne e 03/13/2023 Are you concerned about learning? Not on file 03/13/2023 No 03/13/2023 No 03/13/2023 Digital Access Answer Date Recorded No 04/14/2023 No 04/14/2023 Reliable internet access at home? Not on file 04/14/2023 Device with a working camera? Not on file Intimate Partner Violence Answer Date R ecorded Are you denied basic needs s [facility] as food, clothing, or medical care? No 06/17/2024 In the past 12 months have y ou been in a relationship with a person who hurts, threatens, or tries to control you? No 06/17/2024 Are you denied basic needs s [facility] as food, clothing, or medical care? No 06/17/2024 In the past 12 months have y ou been in a relationship with a person who hurts, threatens, or tries to control you? No 06/17/2024 Comments No Sex and Gender Information Value Date Recorded Sex Assigned at Female 06/09/2019 1:45 PM EDT Legal Sex Female 7:58 PM EST Gender Identity Female 06/09/2019 1:45 PM EDT Sexual Orientation Not on file Last Filed Vital Signs Vital Sign Reading Time Taken Comments Blood Pressure 171/106 06/17/2024 7:37 PM EDT Pulse 89 06/17/2024 7:37 PM EDT Temperature 37 C (98.6 F) 06/17/2024 3:00 PM EDT Respiratory Rate 20 06/17/2024 7:37 PM EDT Oxygen Saturation 99% 06/17/2024 7:37 PM EDT Inhaled Oxygen Concentration - - Weight 68 kg (150 lb) 06/17/2024 5:58 PM EDT Height 157.5 cm (5' 2 ) 06/17/2024 5:58 PM EDT Body Mass Index 27.44 06/17/2024 5:58 PM EDT Plan of Treatment Health Maintenance Due Date Last Done Comments Adult Td,Tdap Booster 1940 DEPRESSION SCREENING 1951 OSTEOPOROSIS SCREENING INITIAL (ONE-TIME) 2004 RSV VACCINE (1 - 1-dose 75+ series) 2014 PNEUMOCOCCAL VACCINES (50+ years) (2 of 2 - PPSV23) 04/24/2016 04/24/2015 TSH LEVEL 03/13/2024 03/13/2023 COVID-19 VACCINE ( season) 2024 CREATININE LEVEL 06/17/2025 06/17/2024, , 06/09/2019 INFLUENZA VACCINE (#1) 2025 , 08/29/2021, 08/17/2019, Additional history exists POTASSIUM LEVEL 06/17/2025 06/17/2024, 02/16, 06/09/2019 ZOSTER VACCINES Completed 09/16/2022, 09/17, 03/07/2016 HEPATITIS A VACCINES Aged Out No long er eligible based on patient's age to complete this topic HIB VACCINES Aged Out No longer eligi ble based on patient's age to complete this topic MENINGOCOCCAL VACCINES (ACWY) Aged Out No longer eligible based on patient's age to complete this topic MENINGOCOCCAL VACCINES (B) Aged Out N o longer eligible based on patient's age to complete this topic Medical Devices Not on file Procedures Procedure Name Priority Date/Time Associated Diagnosis Comments BASIC METABOLIC PANEL STAT 06/17/2024 12:42 PM EDT TSH WITH REFLEX STAT 03/13/2023 3:12 PM EDT from Last 3 Months or Most Recently Relevant to Health Maintenance Results * Basic metabolic panel (06/17/2024 12:42 PM EDT) SODIUM 141 133 - 146 mmol/L [facility] CHLORIDE 105 96 - 108 mmol/L [facility] POTASSIUM 3.6 3.3 - 5.1 mmol/L [facility] CO2 28 21 - 35 mmol/L [facility] BUN 11 6 - 19 mg/dL [facility] CREATININE 0.70 0.5 - 1.5 mg/dL [facility] GLUCOSE 95 70 - 99 mg/dL [facility] CALCIUM 10.1 8.4 - 10.3 mg/dL [facility] EGFR 85 >59 mL/min/1.7 3m2 [facility] Comment:Estimated glomerular filtration rate calculated using the CKD-EPI refit equation. ANION GAP 12 10 - 20 mmol/L [facility] Blood 06/17/2024 12:4 2 PM EDT 06/17/2024 12:45 PM EDT us Saud Holman MD LAB BLOOD ORDERABLES Final Result Performing Organization Address City/[facility]/ZIP Co de Phone Number [address] [phone] * TSH with reflex (03/13/2023 3:12 PM EDT) TSH 1.92 0.27 - 4.20 uIU/mL [facility] Blood 03/13/2023 3:12 PM EDT 03/13/2023 3:16 PM EDT us Marta Varela PA-C LAB BLOOD ORDERABLES Final Result Performing Organization Address City/[facility]/ZIP Co de Phone Number [address] [phone] from Last 3 Months or Most Recently Relevant to Health Maintenance Insurance MEDICARE PART A & B [facility] MEDICARE SUPPLEMENT MEDICARE PART A & B [facility] MEDICARE SUPPLEMENT MEDICARE PART A & B [facility] MEDICARE SUPPLEMENT MEDICARE PART A & B [email or web address] MEDICARE SUPPLEMENT MEDICARE PART A & B [employer] MEDICARE SUPPLEMENT MEDICARE PART A & B [facility] MEDICARE SUPPLEMENT MEDICARE PART A & B [employer] MEDICARE SUPPLEMENT MEDICARE PART A & B [employer] MEDICARE SUPPLEMENT MEDICARE PART A & B [facility] MEDICARE SUPPLEMENT Care Teams Flight Surveyor Relationship Specialty Start Date End Date Dulce Maria Ya MD [address] [place] [id number] PCP - General 05/17/14 Additional Source Comments The information contained in this document represents components of the legal health record. It is not the complete legal health record.[facility]
--- OUTSIDE RECORDS SUMMARY | 2025-07-21 20:31 | XMS_ITS ---
Author Name [facility] Organization Unknown Allergies Allergen Reaction Severity Comment Documented Date Source Statu s GABAPENTIN SWELLING FACIAL SWELLING 02/15/2025 CCT a ctive Problems Problem Status Onset Date Problem Type Date of Resoluti on Source Pain in right ankle and joints of right foot active EncounterDiagnosisAct CCT Encounters Encounter Type Encounter Reason Primary Diagnosis Location Date Ambulatory [facility] 02/15/2025 Ambulatory Pain in right ankle and joints of right foot Pain in right ankle and joints of right foot [employer] 02/15/2025 Care Team Organization Name Specialty Phone Email Start Date End Da te [employer] 02/16/2025 03/17/2025 [employer] 01/31/2025
--- OUTSIDE RECORDS SUMMARY | 2025-07-21 20:31 | XMS_ITS | Clinical Summary ---
Author Organization [facility] Address [address] [place] [address] Care Team Providers Care Financial Economist Name Role Phone Pcp, No Primary Care Provider Unavailabl e Allergies Active Allergy Reactions Criticality Noted Date Comments Gabapentin Swelling Medium 02/15/2025 FACIAL SWELLING Social History Tobacco Use Types Packs/Day Years Used Date Smoking Tobacco: Never Assessed Comments Unknown Sex and Gender Information Value Date Recorded Sex Assigned at Not on file Legal Sex Female 6:30 PM EST Gender Identity Not on file Sexual Orientation Not on file Plan of Treatment Health Maintenance Due Date Last Done Comments Advance Care Planning 1940 DTaP/Tdap/Td Vaccines (1 - Tdap) 1958 Pneumococcal Vaccines 50+ (1 of 1 - PCV) 1989 Zoster (Shingles) Vaccine (1 of 2) 1989 DXA Bone Density (Females,Ages 65 and older) 2004 RSV Vaccine 60 years and older and Patients (1 - 1-dose 75+ series) 2014 COVID-19 Vaccine ( season) 2025 08/06/2024, 08/16/2023, 09/14/2021, Additional history exists Influenza Vaccine 06/17/2025 08/06/2024, , 08/19/2022, Additional history exists Hepatitis B Vaccines Aged Out No long er eligible based on patient's age to complete this topic Insurance MEDICARE PART A & B [facility] SUPPLEMENT ONLY Care Teams Financial Economist Relationship Specialty Start Date End Date Pcp, No PCP - General General Medicine 02/15/25
--- OUTSIDE RECORDS SUMMARY | 2025-07-21 20:31 | XMS_ITS | Clinical Summary ---
Author Organization [facility] Address [address] [place] [address] Phone Care Team Providers Care Dredge Pump Operator Name Role Phone Dulce Maria Ya MD Primary Care Provide r Active Problems Problem Noted Date Diagnosed Date Sacroiliitis, not elsewhere classified ([facility] V24) 10/08/2024 Surgical History Surgery Date Site/Laterality Comments CHOLECYSTECTOMY PROCEDURE: PA LAPAROSCOPY SURG CHOLECYSTECTOMY HYSTERECTOMY PROCEDURE: HISTORICAL HYSTERECTOMY OTHER SURGICAL HISTORY PROCEDURE: PA PRQ TRLUML CORONARY STENT W/ANGIO ONE ART/BRNCH Medical History Medical History Date Comments Essential hypertension DX:Essent ial hypertension H/O blood clots DX:H/O blood jennifer ts Anxiety state DX:Anxiety state Heart attack ([facility] V24, [facility] V28) DX:Heart attack ([facility]) Carotid atherosclerosis DX:Carot id atherosclerosis Other pulmonary embolism wit hout acute cor pulmonale ([facility] V24, [facility] V28) DX:Other pulm onary embolism without acute cor pulmonale ([facility]) Social History Tobacco Use Types Packs/Day Years [...] Vaccines (1 - Tdap) 1959 RSV Immunization Adult Patients (1 - 1-dose 75+ series) 2014 Pneumococcal Vaccine: 50+ Years (2 of 2 - PPSV23) 04/24/2016 04/24/2015 Cholesterol Screening (Lipid Panel) 10/15/2022 Falls Risk Assessment 10/15/2022 Medicare Annual Wellness Visit 10/15/2022 Osteoporosis Screening (Bone Density Screening) 10/15/2022 Social Influencers of Health Screening 10/15/2022 COVID-19 Vaccine ( season) 2024 09/14/2021, 01/25/2021, 12/28/2020 Hypertension/CHF/CAD Annual BMP Blood Test 08/27/2024 Depression Screening 11/17/2024 Influenza Vaccine (#1) 2025 3, 08/19/2022, 08/29/2021, Additional history exists Zoster Vaccines Completed 09/16/2022, 09/17, 03/07/2016 HIB [...] age to complete this topic Meningococcal B Vaccine Aged Out No l onger eligible based on patient's age to complete this topic RSV Immunization Patients Under 20 months Aged Out No longer eligible based on patient's age to complete this topic Varicella Vaccines Aged Out No longer eligible based on patient's age to complete this topic Insurance MEDICARE [facility] Care Teams Dredge Pump Operator Relationship Specialty Start Date End Date Dulce Maria Ya MD [address] [place], [place] [phone] Ludwig MA PCP - General 06/16/13
[2025-07-21 20:35] VITALS: BP 161/75; PULSE 67; RESP 16; TEMP 36.7; O2SAT 95
[2025-07-21 22:27] VITALS: BP 146/67; PULSE 66; RESP 16; TEMP 36.6; O2SAT 93
[2025-07-22 00:34] VITALS: BP 142/85; PULSE 76; RESP 18; TEMP 36.2; O2SAT 97
--- NOTE | 2025-07-22 00:44 | MHC.CARE ---
CARE Team called a Lyft for the patient at the ED's request. Patient's lyft was tracked until she successfully arrived home. CARE Team contacted patient to ensure she was all set, but she did not answer. VM left.
== END 2025-07-22 00:30 | disposition home or self-care (01) ==
PROVIDERS: Registered Nurse Emergency; Emergency Provider Emergency Medicine; PCP Internal Medicine
DX: G62.9 Polyneuropathy, unspecified (principal); R20.8 Other disturbances of skin sensation; K59.09 Other constipation; M54.50 Low back pain, unspecified; Z87.440 Personal history of urinary (tract) infections; Z79.899 Other long term (current) drug therapy
CPT/HCPCS: 36415; 80053; 83735; 83880; 85025; 99283; 99284